=== PATIENT | male | born 1970 | race American Indian/Alaskan Native ===

== ENCOUNTER → 2020-07-21 08:58 | Outpatient (BNVA) | payer MEDICAID, SELFPAY | PROVIDERS: PCP Internal Medicine; Referring Provider Internal Medicine; Visit Provider Physician Assistant | DX: Z76.89 Persons encountering health services in other specified circumstances (principal) ==

== ENCOUNTER → 2020-08-03 14:27 | Outpatient (BNVA) | payer MEDICAID, SELFPAY | PROVIDERS: PCP Internal Medicine; Referring Provider Internal Medicine; Visit Provider Urology | DX: E29.1 Testicular hypofunction (principal); N00-N99 Diseases of the genitourinary system; K40.90 Unilateral inguinal hernia, without obstruction or gangrene, not specified as recurrent; E11.9 Type 2 diabetes mellitus without complications | CPT/HCPCS: 99212 ==

== ENCOUNTER 2020-09-30 08:10 | Day surgery (SDC) | payer MEDICAID, SELFPAY ==
--- NOTE | 2020-09-29 09:51 | HO.ANESPROP2 ---
Documented by User: Alma Rosa Pavon 09/29/20 09:52 HPI - Anesthesia Eval Consult details Narrative: 50yo M for Colonoscopy PMFSH Active Problems Active Problems: All Active Problems (Updated 08/03/20 @ 15:11 by Alejo Cordero III, MD) Inguinal hernia (Acute) Delayed ejaculation, acquired, generalized, mild (Acute) Hypogonadism in male (Acute) Vitamin D deficiency (Acute) HTN (hypertension) (Acute) Depression (Acute) Diabetes (Acute) Encounter for screening colonoscopy (Acute) Past Medical History Medical History Delayed ejaculation, acquired, generalized, mild Depression Diabetes HTN (hypertension) Hypogonadism in male Vitamin D deficiency Family History Family History Mother Breast cancer Surgical History Surgical History History of appendectomy Hx of cholecystectomy Social History Social History Alcohol intake: never Smoking Status: Former smoker Use of substances other than those prescribed or required for medical reasons: No Advance Directives: No Advance Directives Information Provided: Yes Recently lost weight without trying: No Current occupational status: unemployed Meds Allergies Allergy/AdvReac Type Severity Reaction Status Date / Time ciprofloxacin [Cipro] Allergy Unknown Itching Verified 09/30/20 08:29 Home Medications Medication Instructions Recorded Confirmed Last Taken Type cholecalciferol (vitamin D3) 50 50 mcg PO DAILY 07/21/20 09/27/20 Unknown History mcg (2,000 unit) chewable tablet clonazepam 1 mg tablet 1 mg PO BID 07/21/20 09/27/20 Unknown History dulaglutide 1.5 mg/0.5 mL 1.5 mg SUBCUT QWEEK 07/21/20 09/27/20 Unknown History subcutaneous pen injector fenofibrate 54 mg tablet 54 mg PO DAILY 07/21/20 09/27/20 Unknown History fluticasone propionate 110 2 puff INHALATION BID 07/21/20 09/27/20 Unknown History mcg/actuation HFA aerosol inhaler fluticasone propionate 50 1 spray INTRANASAL DAILY 07/21/20 09/27/20 Unknown History mcg/actuation nasal spray,suspension gabapentin 100 mg capsule 100 mg PO TID 07/21/20 09/27/20 Unknown History lisinopril 20 1 tab PO DAILY 07/21/20 09/27/20 Unknown History mg-hydrochlorothiazide 12.5 mg tablet metformin 1,000 mg tablet 1,000 mg PO BID 07/21/20 09/30/20 09/30/20 History montelukast 10 mg tablet 10 mg PO DAILY 07/21/20 09/27/20 Unknown History omeprazole 40 mg capsule,delayed 40 mg PO DAILY 07/21/20 09/27/20 Unknown History release venlafaxine 150 mg 150 mg PO DAILY 07/21/20 09/27/20 Unknown History capsule,extended release 24 hr Exam Exam Date and Time: September 29, 2020950 Assessment and Plan Assessment Anesthesia Assessment: Chart Reviewed Documented by User: Shanae Norman 09/30/20 09:50 [facility] Past Medical History Medical History Delayed ejaculation, acquired, generalized, mild Depression Diabetes HTN (hypertension) Hypogonadism in male Vitamin D deficiency Family History Family History Mother Breast cancer Surgical History Surgical History History of appendectomy Hx of cholecystectomy Social History Social History Alcohol intake: never Smoking Status: Former smoker Use of substances other than those prescribed or required for medical reasons: No Advance Directives: No Advance Directives Information Provided: Yes Recently lost weight without trying: No Current occupational status: unemployed Meds Allergies Allergy/AdvReac Type Severity Reaction Status Date / Time ciprofloxacin [Cipro] Allergy Unknown Itching Verified 09/30/20 08:29 Home Medications Medication Instructions Recorded Confirmed Last Taken Type cholecalciferol (vitamin D3) 50 50 mcg PO DAILY 07/21/20 09/27/20 Unknown History mcg (2,000 unit) chewable tablet clonazepam 1 mg tablet 1 mg PO BID 07/21/20 09/27/20 Unknown History dulaglutide 1.5 mg/0.5 mL 1.5 mg SUBCUT QWEEK 07/21/20 09/27/20 Unknown History subcutaneous pen injector fenofibrate 54 mg tablet 54 mg PO DAILY 07/21/20 09/27/20 Unknown History fluticasone propionate 110 2 puff INHALATION BID 07/21/20 09/27/20 Unknown History mcg/actuation HFA aerosol inhaler fluticasone propionate 50 1 spray INTRANASAL DAILY 07/21/20 09/27/20 Unknown History mcg/actuation nasal spray,suspension gabapentin 100 mg capsule 100 mg PO TID 07/21/20 09/27/20 Unknown History lisinopril 20 1 tab PO DAILY 07/21/20 09/27/20 Unknown History mg-hydrochlorothiazide 12.5 mg tablet metformin 1,000 mg tablet 1,000 mg PO BID 07/21/20 09/30/20 09/30/20 History montelukast 10 mg tablet 10 mg PO DAILY 07/21/20 09/27/20 Unknown History omeprazole 40 mg capsule,delayed 40 mg PO DAILY 07/21/20 09/27/20 Unknown History release venlafaxine 150 mg 150 mg PO DAILY 07/21/20 09/27/20 Unknown History capsule,extended release 24 hr Exam Airway Mallampati Class: II TM Dist: >3cm Neck ROM: Full Loose/Missing/Broken Teeth: No Heart: RRR Lungs: CTA Assessment and Plan Assessment Anesthesia Assessment: Anesthesia Plan Discussed Final Anesthetic Review NPO: Yes ASA Class: II Final Preanesthetic Review: Meds/Allgs Chart Reviewed, Consent Obtained/Reviewed and Anes Risks/Benef Reviewed Patient Risk: Low Procedure Risk: Low Anesthetic Plan Anesthetic Plan: MAC: Disposition: Standard PACU
[2020-09-30 08:32] VITALS: BMI 30.7
[2020-09-30 08:44] VITALS: BP 109/66; PULSE 96; RESP 16; TEMP 37; O2SAT 98
[2020-09-30 08:52] LABS: Glucose, Whole Blood 106 mg/dL (60-115)
[2020-09-30] MEDS: Lactated Ringers 1,000 ML 100 ML IVCONT (09:00)
--- NOTE | 2020-09-30 09:28 | MHC.SHP ---
Pre-Procedural Eval Section B Chief Complaint: screening Relevant Family History (Specify if Yes): No Relevant Social History: None Present Medications: see Short Stay Collaborative assessment Medical History: Significant History (Delayed ejaculation, acquired, generalized, mild Depression Diabetes HTN (hypertension) Hypogonadism in male Vitamin D deficiency) History of Previous Operations: Relevant previous surgery/procedure and date(s) (appendectomy, cholecystectomy) Allergies: Allergies Allergy/AdvReac Type Severity Reaction Status Date / Time ciprofloxacin [Cipro] Allergy Unknown Itching Verified 09/30/20 08:29 Review of Systems Sugical H&P ROS: Negative: Constitution, Cardiovascular, Respiratory, Neurological, Psychiatric, Hem-Onc, Allergic/Immunologic, Gastrointestinal, Genitourinary, Musculoskeletal, Integumentary, Endocrine and Eyes/Ears/Nose/Throat Exam Surgical H&P Exam: Normal: HEENT, Normal: Heart, Normal: Lungs, Normal: Extremities, Normal: Abdomen, Normal: Skin and Normal: Neurological Plan Diagnosis/Plan: Unchanged I have reviewed the history and physical and performed a pertinent physical examination on my patient. No changes have occurred unless specified.
--- NOTE | 2020-09-30 09:56 | PM.OP ---
Brief Operative Note Date of Service: 09/30/20 Pre-op diagnosis: colon screening Post-op diagnosis: other (diverticulosis, internal hemorrhoids) Procedure: see op note Surgeon: Dao Chakraborty MD Anesthesia: MAC Estimated blood loss (mL): 0 Condition: stable Disposition: PACU
--- NOTE | 2020-09-30 09:57 | P.OP_ITS ---
Operative Note Operative Note Date of Service: 09/30/20 Narrative: Operative Information Procedure Description: Colonoscopy COLONOSCOPY Instrument: Olympus variable stiffness pediatric scope 190L Colonoscopy Monitoring: Vital signs and clinical assessment, continuous EKG monitoring, Pulse oximetry, Carbon Dioxide monitoring and blood pressure monitoring were done throughout the procedure. Colon withdrawal time was 9 minutes. Procedure: The patient was placed in the left lateral decubitis position and pre-procedure medications were administered. After a digital rectal examination of the ano-rectum, the video colonoscope was inserted into the rectum and advanced through the colon to the cecum/TI. The colonoscope was slowly withdrawn in a retrograde panoramic fashion and the colon mucosa was carefully examined including a retroflexed view of the rectum. Findings and interventions are described below. Procedure Difficulty:easy Findings: Terminal Ileum-normal Cecum:normal Ascending Colon: normal Transverse Colon -normal Descending Colon:normal Sigmoid Colon: scattered moderate sized diverticula Rectum: Retroflexion with small internal hemorrhoids, grade II Anorectum - internal hemorrhoids seen on forward view Colon preparation: [place] Bowel Preparation Scale Right colon; 2 Transverse colon: 2 Left colon; 1 (0 = Unprepared colon segment with mucosa not seen due to solid stool that cannot be cleared. 1 = Portion of mucosa of the colon segment seen, but other areas of the colon segment not well seen due to staining, residual stool and/or opaque liquid. 2 = Minor amount of residual staining, small fragments of stool and/or opaque liquid, but mucosa of colon segment seen well. 3 = Entire mucosa of colon segment seen well with no residual staining, small fragments of stool or opaque liquid) Impression and Post Procedure Diagnosis: internal hemorrhoids diverticular disease Plan: High fiber diet leaflet Avoid straining at stool, epsom salts and sitz bath, anusol supps or cream Repeat Colonoscopy in 5 years deu to prep on left or earlier if clinically indicated Above findings were reviewed with the patient and relevant handouts were provided if indicated.
[2020-09-30 10:05] VITALS: BP 98/57; PULSE 81; RESP 18; TEMP 36.3; O2SAT 95
[2020-09-30 10:18] VITALS: BP 106/70; PULSE 80; RESP 18; O2SAT 98
== END 2020-09-30 10:37 | disposition home or self-care (01) ==
PROVIDERS: PCP Internal Medicine; Visit Provider Internal Medicine Gastroenterology
PROC: 0DJD8ZZ Inspection of Lower Intestinal Tract, Via Natural or Artificial Opening Endoscopic (ICD-10-PCS; CPT 45378; principal; 2020-09-30 09:40)
DX: Z12.11 Encounter for screening for malignant neoplasm of colon (principal); K57.30 Diverticulosis of large intestine without perforation or abscess without bleeding; K64.1 Second degree hemorrhoids; I10 Essential (primary) hypertension; E11.9 Type 2 diabetes mellitus without complications; Z90.49 Acquired absence of other specified parts of digestive tract; Z79.84 Long term (current) use of oral hypoglycemic drugs; Z79.899 Other long term (current) drug therapy
CPT/HCPCS: 45378; 82947

== ENCOUNTER → 2020-10-28 11:40 | Outpatient (BNVA) | payer OTHER, SELFPAY | PROVIDERS: PCP Internal Medicine; Visit Provider Physician Assistant ==

== ENCOUNTER 2023-02-14 11:36 | Outpatient (REF) | payer OTHER, SELFPAY ==
[2023-02-14 13:23] LABS: MANUAL DIFF FLAG NO
[2023-02-14 13:57] LABS: Basophils Absolute Auto 0.1 X10*3/uL (0.0-0.2); Basophils Percent Auto 0.6 % (0-2); Eosinophils Absolute Auto 0.1 X10*3/uL (0.0-0.4); Eosinophils Percent Auto 1.1 % (0-4); Hematocrit 49.2 % (42.0-52.0); Hemoglobin 16.2 g/dl (14.0-18.0); Imm Gran Abs Auto 0.03 X10*3/uL (0.00-0.03); Imm Gran Pct Auto 0.4 % (0.0-0.4); Lymphocytes Absolute Auto 2.5 X10*3/uL (1.2-4.9); Lymphocytes Percent Auto 31.4 % (20-40); Mean Corpuscular HGB Conc 32.9 g/dl (31.0-36.0); Mean Corpuscular Hemoglobin 29.2 pg (27.0-33.0); Mean Corpuscular Volume 88.8 fL (80.0-98.0); Mean Platelet Volume 9.2 fL (9.4-12.4); Monocytes Absolute Auto 0.5 X10*3/uL (0.1-1.2); Monocytes Percent Auto 6.9 % (2-11); Neutrophils Absolute Auto 4.7 x10*3/uL (2.0-8.3); Neutrophils Percent Auto 59.6 % (45-73); Platelet Count 529 X10*3/uL (160-400); Red Blood Count 5.54 X10*6/uL (4.60-5.80); Red Cell Distribution Width 13.7 % (11.0-16.0); White Blood Count 7.9 X10*3/uL (4.8-10.8)
== END 2023-02-14 11:37 | disposition home or self-care (01) ==
LOC: HO.HHCL 11:36
PROVIDERS: Visit Provider Registered Nurse
DX: R79.89 Other specified abnormal findings of blood chemistry (principal)
CPT/HCPCS: 36415; 85025

== ENCOUNTER 2023-08-23 13:57 | Outpatient (REF) | payer OTHER, SELFPAY ==
[2023-08-23 16:49] LABS: Estimated Glomerular Filt Rate > 60
[2023-08-24 03:36] LABS: Syphilis Screen Nonreactive (Nonreactive)
[2023-08-24 03:54] LABS: ~HepC Num1 0.14 S/CO (0.00-0.79); ~Hepatitis C Antibody Nonreactive (Nonreactive)
[2023-08-28 15:17] LABS: HIV RNA PCR Qn Copies NOT DETECTED copies/mL (NOT DETECTED); HIV RNA PCR Qn Log Copies NOT DETECTED (NOT DETECTED)
== END 2023-08-23 13:58 | disposition home or self-care (01) ==
LOC: HO.HHCL 13:57
PROVIDERS: Visit Provider Nurse Practitioner Primary Care
DX: Z11.3 Encounter for screening for infections with a predominantly sexual mode of transmission (principal)
CPT/HCPCS: 36415; 82565; 86780; 86803; 87536

== ENCOUNTER 2023-12-26 08:28 | Outpatient (AMB) | payer OTHER, SELFPAY ==
[2023-12-26 08:30] VITALS: BP 128/63; PULSE 88; BMI 29.4
--- NOTE | 2023-12-26 08:30 | A.OFFVIS_ITS ---
Vital Signs 3 12/26/23 08:30 Height 5 ft 5 in Weight 176 lb 12.972 oz BMI 29.4 BP 128/63 Blood Pressure Location Rt brachial Position Sitting Pulse 88 Intake Visit Reasons: Colonoscopy Screening Intake Note: Issac presents to in office visit today for colonoscopy screening. CC: Patient reports occasional epigastric pain. Denies other GI symptoms. Electrical Technology Instructor Required: Yes Electrical Technology Instructor Name: [id number] Judy Accompanied by: Self / Same As Patient Allergies ciprofloxacin [Cipro] Allergy (Unknown, Verified 12/26/23 08:34) Itching HPI HPI Colonoscopy Screening: Details: 53-YEAR-OLD MALE here for preprocedural meeting to discuss a screening colonoscopy. He is referred by [facility]. PMX HERMANN Asthma Obesity Hypertension High cholesterol Diabetes Depression Fibromyalgia syndrome Inguinal hernia Allergic rhinitis GERD Hypogonadism Generalized osteoarthritis Thrombophilia Diabetic neuropathy ? HIV verses hepatitis-B infection-on [place] - preventative Constipation * SURGICAL HISTORY Cholecystectomy Appendectomy * ALLERGIES Cipro * [employer] LABS: No recent labs in our system 2020 colonoscopy-Chakraborty Findings: Terminal Ileum-normal Cecum:normal Ascending Colon: normal Transverse Colon -normal Descending Colon:normal Sigmoid Colon: scattered moderate sized diverticula Rectum: Retroflexion with small internal hemorrhoids, grade II Anorectum - internal hemorrhoids seen on forward view Impression and Post Procedure Diagnosis: internal hemorrhoids diverticular disease Plan: High fiber diet leaflet Avoid straining at stool, epsom salts and sitz bath, anusol supps or cream Repeat Colonoscopy in 5 years deu to prep on left or earlier if clinically indicated TODAY'S VISIT [employer] #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 He had a negative colonoscopy at that time with a recommended 5 year follow up; mostly because of insufficient prep. He has had many years of stomach problems. He says he is also having upper stomach problems and was sent for an EGD. He takes omeprazole daily but he still has a lot of upper abd pain. The pain is in the midline gastric to epigastric area. When it is very bad it is intense 10/10 and he has to lay down on his side. The area is always sore and he can't even rest his hands across his abdomen. He is having some post prandial bowel urgency and watery stools. This has been a problem that comes and goes but will happen about twice a week. He will have normal BM's most of the time and he uses Miralax for constipation as needed. He will use this about twice a week. He denies N/V but does have a lot of acid brash. No dysphagia. He also say she is losing a lot of weight 30# since 07/2024. He has been a long time diabetic. He is s/p dillon. HE is aware to avoid too many fats and he eats mostly at home and avoids GERD triggers. He is on omeprazole 40mg qd. Medications that could be contributing to his weight loss are Trulicity and Farxiga along with metformin. Both is mother and father have stomach problems, his mother had Celiac disease. Will get an EGD along with an upper GI study, a RAST panel, and H pylori stool, and CRP. Going forward we might want to move him away from omeprazole due to the loose stools and insufficient relief. We also could consider Creon. Because he has solid bowel movements I do not think cholestyramine or Carafate would be appropriate. Dicyclomine could be considered. Return office visit in 4 weeks to go over whatever results we have at that time. [facility] Medical History Hemorrhoids Delayed ejaculation, acquired, generalized, mild Hypogonadism in male Vitamin D deficiency HTN (hypertension) Depression Diabetes Surgical History History of esophagogastroduodenoscopy (EGD) H/O colonoscopy Hx of cholecystectomy History of appendectomy Family History Mother Breast cancer Social History Household Members: None Household Members Other:: with a friend Alcohol intake: never Patient Tobacco Use Status: Current everyday Tobacco user Tobacco use type: Cigarette Cigarettes Per Day: 5 Current occupational status: unemployed Review of Systems Const Denies fatigue, Denies fever(s), Denies night sweats, Denies poor appetite and Denies weight loss Eyes Details: Glasses Reports requires corrective lenses ENT Reports Normal hearing present, Denies dental pain, Denies dysphagia, Denies hearing loss, Denies mouth pain, Denies odynophagia, Denies throat swelling, Denies tongue swelling and Reports other (Dentition adequate) Card Reports no additional complaints Resp Reports no additional complaints GI Details: Reports abdominal pain, Denies melena, Denies bloating, Denies hematochezia, Reports constipation, Denies GI cramping, Denies dysphagia, Denies excessive flatus, Denies early satiety, Reports heartburn, Denies diarrhea, Reports loose stools, Denies nausea, Denies odynophagia, Denies vomiting and Denies hematemesis Skin/Breast Denies pruritus, Denies lesions, Denies rash and Denies jaundice Neuro Reports Normal hearing present and Denies Abnormal speech present Endo Denies fatigue Aller/Immun Denies throat swelling and Denies tongue swelling Physical Exam Vital Signs: Last Vital Signs Pulse 88 12/26/23 08:30 BP 128/63 12/26/23 08:30 BMI result Body Mass Index 29.4 Const General: cooperative, no acute distress, well developed and well groomed Nutritional Appearance: well nourished and overweight Orientation/consciousness: oriented to person, oriented to place and oriented to time Limitations: language barrier HEENT Head: Yes normocephalic and Yes atraumatic Eyes General: appearance normal, both eyes and all related structures Pupils: Equal, round and reactive pupils present Neck Neck: Yes normal visual inspection and Yes no lymphadenopathy Thyroid: Thyroid normal Resp Effort & Inspection: normal respiratory effort and able to speak in complete sentences Auscultation: clear to auscultation bilaterally Cardio Rate: regular rate Rhythm: regular rhythm Heart sounds: Normal, physiologic split S2 sound present Peripheral pulses: radial pulses present and posterior tibial pulses present GI Inspection: No distended, No Abdominal panniculus present and Yes obesity Palpation (GI): Soft to palpation, Tenderness to palpation present (GI) in the epigastrum, no guarding, not rigid and No hepatosplenomegaly present Percussion: Yes normal to percussion Auscultation: normal bowel sounds Rectal Exam - Male: Yes deferred Abdomen image: 2 1. surgical scars 2. 3. Skin General skin exam: no rashes or lesions noted, turgor normal, skin not dry, no jaundice, No spider nevi and no striae Rashes: no rashes Nails: normal Neuro General: oriented to person, oriented to place and oriented to time Cranial nerves: Yes Equal, round and reactive pupils present and Yes Normal hearing present Speech: No Abnormal speech present Extrem General: Yes normal to inspection, No clubbing, No cyanosis, No edema and Yes venous stasis dermatitis (Mild venous stasis changes with loss of hair in the last 3rd of legs) Psych Appearance: grossly normal and well kempt Mental Status: mental status grossly normal Speech and movement: Normal speech and movement present Affect: normal affect Attitude: cooperative Thought process: Normal thought process present and not confabulating Thought content: Normal thought content present Insight: Limited insight present (Psych) Judgement: Limited judgement present (Psych) Assessment & Plan Assessment & Plan (1) Asthma: Code(s): J45.909 - Unspecified asthma, uncomplicated Category: Medical (2) HERMANN (obstructive sleep apnea): Code(s): G47.33 - Obstructive sleep apnea (adult) (pediatric) Category: Medical (3) GERD (gastroesophageal reflux disease): Code(s): K21.9 - Gastro-esophageal reflux disease without esophagitis Category: Medical (4) Pre-op examination: Code(s): Z01.818 - Encounter for other preprocedural examination Category: Medical (5) Upper abdominal pain: Code(s): R10.10 - Upper abdominal pain, unspecified Category: Medical (6) Weight loss, non-intentional: Comment: 30 lbs since 07/2024 Code(s): R63.4 - Abnormal weight loss Category: Medical Plan [employer] #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 He had a negative colonoscopy at that time with a recommended 5 year follow up; mostly because of insufficient prep. He has had many years of stomach problems. He says he is also having upper stomach problems and was sent for an EGD. He takes omeprazole daily but he still has a lot of upper abd pain. The pain is in the midline gastric to epigastric area. When it is very bad it is intense 10/10 and he has to lay down on his side. The area is always sore and he can't even rest his hands across his abdomen. He is having some post prandial bowel urgency and watery stools. This has been a problem that comes and goes but will happen about twice a week. He will have normal BM's most of the time and he uses Miralax for constipation as needed. He will use this about twice a week. He denies N/V but does have a lot of acid brash. No dysphagia. He also say she is losing a lot of weight 30# since 07/2024. He has been a long time diabetic. He is s/p dillon. HE is aware to avoid too many fats and he eats mostly at home and avoids GERD triggers. He is on omeprazole 40mg qd. Medications that could be contributing to his weight loss are Trulicity and Farxiga along with metformin. Both is mother and father have stomach problems, his mother had Celiac disease. Will get an EGD along with an upper GI study, a RAST panel, and H pylori stool, and CRP. Going forward we might want to move him away from omeprazole due to the loose stools and insufficient relief. We also could consider Creon. Because he has solid bowel movements I do not think cholestyramine or Carafate would be appropriate. Dicyclomine could be considered. Return office visit in 4 weeks to go over whatever results we have at that time. Orders: Orders 2 EGD with [facility]by - GI Use Only Today R10.10 - Upper abdominal pain, unspecified H pylori Ag Stool Today R10.10 - Upper abdominal pain, unspecified, R63.4 - Abnormal weight loss Comprehensive Met. Panel Today G47.33 - Obstructive sleep apnea (adult) (pediatric), J45.909 - Unspecified asthma, uncomplicated, K21.9 - Gastro- esophageal reflux disease without esophagitis, Z01.818 - Encounter for other preprocedural examination Complete Blood Count Auto Diff Today G47.33 - Obstructive sleep apnea (adult) (pediatric), J45.909 - Unspecified asthma, uncomplicated, K21.9 - Gastro- esophageal reflux disease without esophagitis, Z01.818 - Encounter for other preprocedural examination [place] upper GI small bowel Today R10.10 - Upper abdominal pain, unspecified, R63.4 - Abnormal weight loss Rast Allergen Today R10.10 - Upper abdominal pain, unspecified, R63.4 - Abnormal weight loss C Reactive Protein Today R10.10 - Upper abdominal pain, unspecified, R63.4 - Abnormal weight loss Amylase Today R10.10 - Upper abdominal pain, unspecified, R63.4 - Abnormal weight loss Lipase Today R10.10 - Upper abdominal pain, unspecified, R63.4 - Abnormal weight loss TSH reflex Free T4 Today R10.10 - Upper abdominal pain, unspecified, R63.4 - Abnormal weight loss Coding Level of Care Code New Pt Level 3 (76072) Diagnoses Asthma J45.909 HERMANN (obstructive sleep apnea) G47.33 GERD (gastroesophageal reflux disease) K21.9 Pre-op examination Z01.818 Upper abdominal pain R10.10 Weight loss, non-intentional R63.4
== END 2023-12-26 09:29 | disposition home or self-care (01) ==
PROVIDERS: PCP Internal Medicine; Visit Provider Nurse Practitioner
DX: J45.909 Unspecified asthma, uncomplicated (principal); G47.33 Obstructive sleep apnea (adult) (pediatric); K21.9 Gastro-esophageal reflux disease without esophagitis; Z01.818 Encounter for other preprocedural examination; R10.10 Upper abdominal pain, unspecified; R63.4 Abnormal weight loss
CPT/HCPCS: 99203; 99214

== ENCOUNTER 2023-12-26 08:28 | Outpatient (REF) | payer OTHER, SELFPAY ==
[2023-12-26 10:03] LABS: MANUAL DIFF FLAG NO
[2023-12-26 10:38] LABS: Basophils Absolute Auto 0.1 X10*3/uL (0.0-0.2); Basophils Percent Auto 1.2 % (0-2); Eosinophils Absolute Auto 0.1 X10*3/uL (0.0-0.4); Eosinophils Percent Auto 2.6 % (0-4); Hematocrit 48.1 % (42.0-52.0); Hemoglobin 15.6 g/dl (14.0-18.0); Imm Gran Abs Auto 0.02 X10*3/uL (0.00-0.03); Imm Gran Pct Auto 0.5 % (0.0-0.4); Lymphocytes Absolute Auto 1.8 X10*3/uL (1.2-4.9); Lymphocytes Percent Auto 41.2 % (20-40); Mean Corpuscular HGB Conc 32.4 g/dl (31.0-36.0); Mean Corpuscular Hemoglobin 30.6 pg (27.0-33.0); Mean Corpuscular Volume 94.5 fL (80.0-98.0); Mean Platelet Volume 9.3 fL (9.4-12.4); Monocytes Absolute Auto 0.6 X10*3/uL (0.1-1.2); Monocytes Percent Auto 13.2 % (2-11); Neutrophils Absolute Auto 1.8 x10*3/uL (2.0-8.3); Neutrophils Percent Auto 41.3 % (45-73); Platelet Count 356 X10*3/uL (160-400); Red Blood Count 5.09 X10*6/uL (4.60-5.80); Red Cell Distribution Width 13.3 % (11.0-16.0); White Blood Count 4.3 X10*3/uL (4.8-10.8)
[2023-12-26 11:23] LABS: Alanine Aminotransferase 35 U/L (0-40); Albumin Level 4.3 g/dL (3.5-5.0); Alkaline Phosphatase 106 U/L (39-117); Amylase 44 U/L (28-100); Anion Gap 15 (12-20); Aspartate Amino Transferase 35 U/L (5-37); Bilirubin Total 0.3 mg/dL (0.0-1.0); Blood Urea Nitrogen 12 mg/dL (9-16); C Reactive Protein 1.13 mg/dL (< or = 0.50); Calcium 9.9 mg/dL (8.4-10.2); Carbon Dioxide 24 mmol/L (22-29); Chloride 105 mmol/L (96-108); Estimated Glomerular Filt Rate > 60; Glucose Random 178 mg/dL (60-115); Lipase 50 U/L (8-78); Potassium 4.2 mmol/L (3.3-5.1); Sodium 140 mmol/L (135-145); Total Protein 7.3 g/dL (6.5-8.0)
[2023-12-26 11:38] LABS: TSH reflex Free T4 1.28 uIU/mL (0.32-4.0)
== END 2023-12-26 08:29 | disposition home or self-care (01) ==
LOC: HO.LAB 08:28
PROVIDERS: PCP Nurse Practitioner Primary Care; Visit Provider Nurse Practitioner
DX: Z01.818 Encounter for other preprocedural examination (principal); R10.10 Upper abdominal pain, unspecified; G47.33 Obstructive sleep apnea (adult) (pediatric); J45.909 Unspecified asthma, uncomplicated; K21.9 Gastro-esophageal reflux disease without esophagitis; R63.4 Abnormal weight loss; Z91.09 Other allergy status, other than to drugs and biological substances
CPT/HCPCS: 36415; 80053; 82150; 83690; 84443; 85025; 86003; 86140; 99202; 99212

== ENCOUNTER 2024-01-08 10:11 | Outpatient (REF) | payer OTHER, SELFPAY | END 2024-01-08 10:12 | disposition home or self-care (01) | LOC: HO.LNP 10:11 | PROVIDERS: Visit Provider Nurse Practitioner | DX: R10.10 Upper abdominal pain, unspecified (principal); R63.4 Abnormal weight loss | CPT/HCPCS: 87338 ==

== ENCOUNTER 2024-01-30 10:48 | Outpatient (AMB) | payer OTHER, SELFPAY ==
--- NOTE | 2024-01-30 10:49 | MHC.OFFVIS ---
Vital Signs 01/30/24 10:53 Height 5 ft 5 in Weight 179 lb 0.246 oz BMI 29.8 BP 135/71 Blood Pressure Location Lt brachial Position Sitting Pulse 80 Intake Visit Reasons: 4 weeks upper abd pain Intake Note: Issac returns to in office visit today in follow up of labs. CC: Home Hospice Rn Required: Yes Accompanied by: Self / Same As Patient Allergies ciprofloxacin [Cipro] Allergy (Unknown, Verified 01/30/24 10:58) Itching HPI HPI 4 weeks upper abd pain: Details: Assessment & Plan (1) Asthma: Code(s): J45.909 - Unspecified asthma, uncomplicated Category: Medical (2) HERMANN (obstructive sleep apnea): Code(s): G47.33 - Obstructive sleep apnea (adult) (pediatric) Category: Medical (3) GERD (gastroesophageal reflux disease): Code(s): K21.9 - Gastro-esophageal reflux disease without esophagitis Category: Medical (4) Pre-op examination: Code(s): Z01.818 - Encounter for other preprocedural examination Category: Medical (5) Upper abdominal pain: Code(s): R10.10 - Upper abdominal pain, unspecified Category: Medical (6) Weight loss, non-intentional: Comment: 30 lbs since 07/2024 Code(s): R63.4 - Abnormal weight loss Category: Medical Plan Filipino #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 He had a negative colonoscopy at that time with a recommended 5 year follow up; mostly because of insufficient prep. He has had many years of stomach problems. He says he is also having upper stomach problems and was sent for an EGD. He takes omeprazole daily but he still has a lot of upper abd pain. The pain is in the midline gastric to epigastric area. When it is very bad it is intense 10/10 and he has to lay down on his side. The area is always sore and he can't even rest his hands across his abdomen. He is having some post prandial bowel urgency and watery stools. This has been a problem that comes and goes but will happen about twice a week. He will have normal BM's most of the time and he uses Miralax for constipation as needed. He will use this about twice a week. He denies N/V but does have a lot of acid brash. No dysphagia. He also say she is losing a lot of weight 30# since 07/2024. He has been a long time diabetic. He is s/p dillon. HE is aware to avoid too many fats and he eats mostly at home and avoids GERD triggers. He is on omeprazole 40mg qd. Medications that could be contributing to his weight loss are Trulicity and Farxiga along with metformin. Both is mother and father have stomach problems, his mother had Celiac disease. Will get an EGD along with an upper GI study, a RAST panel, and H pylori stool, and CRP. Going forward we might want to move him away from omeprazole due to the loose stools and insufficient relief. We also could consider Creon. Because he has solid bowel movements I do not think cholestyramine or Carafate would be appropriate. Dicyclomine could be considered. Return office visit in 4 weeks to go over whatever results we have at that time. Orders: Orders EGD with [facility] - GI Use Only Today R10.10 - Upper abdominal pain, unspecified H pylori Ag Stool Today R10.10 - Upper abdominal pain, unspecified, R63.4 - Abnormal weight loss Comprehensive Met. Panel Today G47.33 - Obstructive sleep apnea (adult) (pediatric), J45.909 - Unspecified asthma, uncomplicated, K21.9 - Gastro-esophageal reflux disease without esophagitis, Z01.818 - Encounter for other preprocedural examination Complete Blood Count Auto Diff Today G47.33 - Obstructive sleep apnea (adult) (pediatric), J45.909 - Unspecified asthma, uncomplicated, K21.9 - Gastro-esophageal reflux disease without esophagitis, Z01.818 - Encounter for other preprocedural examination [place] upper GI small bowel Today R10.10 - Upper abdominal pain, unspecified, R63.4 - Abnormal weight loss Rast Allergen Today R10.10 - Upper abdominal pain, unspecified, R63.4 - Abnormal weight loss C Reactive Protein Today R10.10 - Upper abdominal pain, unspecified, R63.4 - Abnormal weight loss Amylase Today R10.10 - Upper abdominal pain, unspecified, R63.4 - Abnormal weight loss Lipase Today R10.10 - Upper abdominal pain, unspecified, R63.4 - Abnormal weight loss TSH reflex Free T4 Today R10.10 - Upper abdominal pain, unspecified, R63.4 - Abnormal weight loss LABS: Laboratory Tests 12/26/23 01/08/24 10:02 07:58 WBC 4.3 L Hgb 15.6 Hct 48.1 Plt Count 356 D Estimated GFR > 60 Total Bilirubin 0.3 AST 35 ALT 35 Alkaline Phosphatase 106 C-Reactive Protein 1.13 H Amylase 44 Lipase 50 TSH 1.28 Stool H. pylori Ag NEGATIVE RAST PANEL SHOWS NO SIGNIFICANT FOOD ALLERGIES EGD BIOPSY UPPER GI STUDY WITH SMALL BOWEL FOLLOW-THROUGH BOOKED FOR 02/28/2024 TODAY'S VISIT Filipino # We review the labs and so far there is no apparent reason for all of his symptoms. Does he continues to struggle I suggest a trial of dicyclomine until we can get some more evidence in the way of the imaging studies and the EGD. Taken from my last note: (He has had many years of stomach problems. He says he is also having upper stomach problems and was sent for an EGD. He takes omeprazole daily but he still has a lot of upper abd pain. The pain is in the midline gastric to epigastric area. When it is very bad it is intense 10/10 and he has to lay down on his side. The area is always sore and he can't even rest his hands across his abdomen. He is having some post prandial bowel urgency and watery stools. This has been a problem that comes and goes but will happen about twice a week. He will have normal BM's most of the time and he uses Miralax for constipation as needed. He will use this about twice a week.) For now I recommend that he come back after his 02/28/2024 upper GI study. [facility]LY [facility], [facility] Medical History Hemorrhoids Delayed ejaculation, acquired, generalized, mild Hypogonadism in male Vitamin D deficiency HTN (hypertension) Depression Diabetes Surgical History History of esophagogastroduodenoscopy (EGD) H/O colonoscopy Hx of cholecystectomy History of appendectomy Family History Mother Breast cancer Social History Household Members: None Household Members Other:: with a friend Alcohol intake: never Patient Tobacco Use Status: Current everyday Tobacco user Tobacco use type: Cigarette Cigarettes Per Day: 5 Current occupational status: unemployed Review of Systems Const Denies fatigue, Denies fever(s), Denies night sweats, Denies poor appetite and Denies weight loss Eyes Details: glasses Reports requires corrective lenses ENT Reports Normal hearing present, Denies dental pain, Denies dysphagia, Denies hearing loss, Denies mouth pain, Denies odynophagia, Denies throat swelling, Denies tongue swelling and Reports other (Dentition adequate) Card Reports no additional complaints Resp Reports no additional complaints GI Details: Reports abdominal pain, Denies melena, Denies bloating, Denies hematochezia, Reports constipation, Reports GI cramping, Denies dysphagia, Denies excessive flatus, Denies early satiety, Reports heartburn, Reports diarrhea, Denies nausea, Denies odynophagia, Denies vomiting and Denies hematemesis Skin/Breast Denies pruritus, Denies lesions, Denies rash and Denies jaundice Neuro Reports Normal hearing present and Denies Abnormal speech present Endo Denies fatigue Aller/Immun Denies throat swelling and Denies tongue swelling Physical Exam Vital Signs: Last Vital Signs Pulse 80 01/30/24 10:53 BP 135/71 01/30/24 10:53 BMI result Body Mass Index 29.8 Const General: cooperative, no acute distress, well developed and well groomed Nutritional Appearance: well nourished and obese Orientation/consciousness: oriented to person, oriented to place and oriented to time Limitations: language barrier HEENT Head: Yes normocephalic and Yes atraumatic Eyes General: appearance normal, both eyes and all related structures Pupils: Equal, round and reactive pupils present Neck Neck: Yes normal visual inspection and Yes no lymphadenopathy Thyroid: Thyroid normal Resp Effort & Inspection: normal respiratory effort and able to speak in complete sentences Auscultation: clear to auscultation bilaterally Cardio Rate: regular rate Rhythm: regular rhythm Heart sounds: Normal, physiologic split S2 sound present Peripheral pulses: radial pulses present and posterior tibial pulses present GI Inspection: No distended, No Abdominal panniculus present and Yes obesity Palpation (GI): Soft to palpation, nontender, no guarding, not rigid and No hepatosplenomegaly present Percussion: Yes normal to percussion Auscultation: normal bowel sounds Rectal Exam - Male: Yes deferred Skin General skin exam: no rashes or lesions noted, turgor normal, skin not dry, no jaundice, No spider nevi and no striae Rashes: no rashes Nails: normal Neuro General: oriented to person, oriented to place and oriented to time Cranial nerves: Yes Equal, round and reactive pupils present and Yes Normal hearing present Speech: No Abnormal speech present Extrem General: Yes normal to inspection, No clubbing, No cyanosis and No edema Psych Appearance: grossly normal and well kempt Mental Status: mental status grossly normal Speech and movement: Normal speech and movement present Affect: normal affect Attitude: cooperative Thought process: Normal thought process present and not confabulating Thought content: Normal thought content present Insight: Limited insight present (Psych) Judgement: Limited judgement present (Psych) Assessment & Plan Assessment & Plan (1) Irritable bowel syndrome with both constipation and diarrhea: Code(s): K58.2 - Mixed irritable bowel syndrome Category: Medical (2) Elevated C-reactive protein (CRP): Code(s): R79.82 - Elevated C-reactive protein (CRP) Category: Medical Plan Filipino # We review the labs and so far there is no apparent reason for all of his symptoms. Does he continues to struggle I suggest a trial of dicyclomine until we can get some more evidence in the way of the imaging studies and the EGD. Taken from my last note: (He has had many years of stomach problems. He says he is also having upper stomach problems and was sent for an EGD. He takes omeprazole daily but he still has a lot of upper abd pain. The pain is in the midline gastric to epigastric area. When it is very bad it is intense 10/10 and he has to lay down on his side. The area is always sore and he can't even rest his hands across his abdomen. He is having some post prandial bowel urgency and watery stools. This has been a problem that comes and goes but will happen about twice a week. He will have normal BM's most of the time and he uses Miralax for constipation as needed. He will use this about twice a week.) For now I recommend that he come back after his 02/28/2024 upper GI study. EGD BIOPSY UPPER GI STUDY WITH SMALL BOWEL FOLLOW-THROUGH BOOKED FOR 02/28/2024 Orders: Orders Calprotectin, Fecal 01/30/24 R79.82 - Elevated C-reactive protein (CRP) Medications: New dicyclomine 20 mg PO QID 120 tabs 6RF 30 days K58.2 - Mixed irritable bowel syndrome Coding Level of Care Code Est Pt Level 3 (30708) Diagnoses Irritable bowel syndrome with both constipation and diarrhea K58.2 Elevated C-reactive protein (CRP) R79.82
[2024-01-30 10:53] VITALS: BP 135/71; PULSE 80; BMI 29.8
== END 2024-01-30 11:34 | disposition home or self-care (01) ==
PROVIDERS: PCP Internal Medicine; Visit Provider Nurse Practitioner
DX: K58.2 Mixed irritable bowel syndrome (principal); R79.82 Elevated C-reactive protein (CRP)
CPT/HCPCS: 99213

== ENCOUNTER → 2024-01-30 10:48 | Outpatient (BNVA) | payer OTHER, SELFPAY | PROVIDERS: PCP Internal Medicine; Visit Provider Nurse Practitioner | DX: Z01.818 Encounter for other preprocedural examination (principal); R10.10 Upper abdominal pain, unspecified; K21.9 Gastro-esophageal reflux disease without esophagitis; R63.4 Abnormal weight loss | CPT/HCPCS: 99212 ==

== ENCOUNTER 2024-03-19 11:23 | Outpatient (REF) | payer OTHER, SELFPAY ==
[2024-03-19 13:45] LABS: Estimated Glomerular Filt Rate > 60
[2024-03-20 04:47] LABS: Syphilis Screen Nonreactive (Nonreactive)
[2024-03-20 05:15] LABS: ~HepC Num1 0.11 S/CO (0.00-0.79); ~Hepatitis C Antibody Nonreactive (Nonreactive)
[2024-03-21 14:39] LABS: HIV RNA PCR Qn Copies NOT DETECTED copies/mL (NOT DETECTED); HIV RNA PCR Qn Log Copies NOT DETECTED (NOT DETECTED)
== END 2024-03-19 11:24 | disposition home or self-care (01) ==
LOC: HO.HHCL 11:23
PROVIDERS: Visit Provider Nurse Practitioner Primary Care
DX: Z11.3 Encounter for screening for infections with a predominantly sexual mode of transmission (principal)
CPT/HCPCS: 36415; 82565; 86780; 86803; 87536

== ENCOUNTER 2024-08-27 11:49 | Day surgery (SDC) | payer OTHER, SELFPAY ==
--- NOTE | 2024-08-26 09:41 | HO.ANESPROP2 ---
Documented by User: Alma Rosa Pavon NP 08/26/24 09:42 HPI - Anesthesia Eval Consult details Narrative: 54yo M for Upper Endoscopy Anesthesia Pre-Procedure Meds Is the patient on any of the following meds?: GLP1/DPP4 PMFSH Active Problems Active Problems: All Active Problems Elevated C-reactive protein (CRP) (Acute) Irritable bowel syndrome with both constipation and diarrhea (Acute) Weight loss, non-intentional (Acute) Upper abdominal pain (Acute) Pre-op examination (Acute) Diabetic neuropathy (Acute) Thrombophilia (Acute) GERD (gastroesophageal reflux disease) (Acute) Allergic rhinitis (Acute) Fibromyalgia (Acute) HERMANN (obstructive sleep apnea) (Acute) Asthma (Acute) Hemorrhoids (Acute) Inguinal hernia (Acute) Delayed ejaculation, acquired, generalized, mild (Acute) Hypogonadism in male (Acute) Vitamin D deficiency (Acute) HTN (hypertension) (Acute) Depression (Acute) Diabetes (Acute) Past Medical History Medical History Hemorrhoids Delayed ejaculation, acquired, generalized, mild Hypogonadism in male Vitamin D deficiency HTN (hypertension) Depression Diabetes Family History Family History Mother Breast cancer Surgical History Surgical History History of esophagogastroduodenoscopy (EGD) H/O colonoscopy Hx of cholecystectomy History of appendectomy Social History Social History Household Members: None Household Members Other:: lives alone Are you a primary family day care provider to a significant other at home: No Do you presently have visiting nurse or other home services: No Alcohol intake: never Patient Tobacco Use Status: Current everyday Tobacco user Tobacco use type: Cigarette Cigarettes Per Day: 5 Use of substances other than those prescribed or required for medical reasons: No Have you been hit, kicked, punched, or otherwise hurt by someone within the past year? If so, by whom?: No Are you DNR?: No Advance Directives: No Advance Directives Information Provided: Yes Recently lost weight without trying: No Nutrition Risks: No Nutritional Risk Current occupational status: unemployed Meds Allergies Allergy/AdvReac Type Severity Reaction Status Date / Time ciprofloxacin [Cipro] Allergy Unknown Itching Verified 01/30/24 10:58 Home Medications ?Medication ?Instructions ?Recorded ?Confirmed ?Last Taken ?Type cholecalciferol (vitamin D3) 50 50 mcg PO DAILY 07/21/20 10/28/20 Unknown History mcg (2,000 unit) chewable tablet clonazepam 1 mg tablet 1 mg PO BID 07/21/20 10/28/20 Unknown History fluticasone propionate 50 1 spray intranasal DAILY 07/21/20 10/28/20 Unknown History mcg/actuation nasal spray,suspension metformin 1,000 mg tablet 1,000 mg PO BID 07/21/20 10/28/20 09/30/20 History montelukast 10 mg tablet 10 mg PO DAILY 07/21/20 10/28/20 Unknown History omeprazole 40 mg capsule,delayed 40 mg PO DAILY 07/21/20 10/28/20 Unknown History release CPAP (CPAP Machine/Device) 12/26/23 Unknown History acetaminophen 500 mg tablet mg PO 12/26/23 Unknown History ascorbic acid (vitamin C) 1,000 mg 1 g PO Q6H 12/26/23 Unknown History capsule aspirin 81 mg tablet,delayed 81 mg PO DAILY 12/26/23 08/26/24 History release dapagliflozin propanediol 5 mg 10 mg PO DAILY 12/26/23 Unknown History tablet (Farxiga) emtricitabine 200 mg-tenofovir 1 tab PO DAILY 12/26/23 Unknown History alafenamide fumarate 25 mg tablet (Descovy) fenofibrate nanocrystallized 145 145 mg PO DAILY 12/26/23 Unknown History mg tablet fluticasone propionate 100 1 inh inhalation BID 12/26/23 Unknown History mcg/actuation blister powder for inhalation gabapentin 300 mg capsule 300 mg PO TID 12/26/23 Unknown History lisinopril 20 mg tablet 20 mg PO DAILY 12/26/23 Unknown History metoprolol succinate 25 mg 25 mg PO DAILY 12/26/23 Unknown History tablet,extended release 24 hr multivitamin (One-A-Day Essential 1 tab PO DAILY 12/26/23 Unknown History tablet) omega-3 fatty acids 1,000 mg 1,000 mg PO DAILY 12/26/23 Unknown History capsule pravastatin 20 mg tablet 20 mg PO DAILY 12/26/23 Unknown History scopolamine base 1 mg over 3 days 1 patch topical Q3D 12/26/23 Unknown History transdermal patch venlafaxine 75 mg capsule,extended 75 mg PO DAILY 12/26/23 Unknown History release 24 hr zolpidem 10 mg tablet 10 mg PO BEDTIME PRN 12/26/23 Unknown History semaglutide 0.25 mg or 0.5 mg (2 0.25 mg subcut QWEEK 01/30/24 Unknown History mg/3 mL) subcutaneous pen injector (Ozempic) dulaglutide 1.5 mg/0.5 mL mg subcut 08/27/24 Unknown History subcutaneous pen injector (Trulicity) dulaglutide 1.5 mg/0.5 mL mg subcut 08/27/24 08/16/24 History subcutaneous pen injector 1.75 mg (Trulicity) Assessment and Plan Assessment Anesthesia Assessment: Chart Reviewed Documented by User: Shanae Norman MD 08/27/24 12:40 [facility] Past Medical History Medical History Hemorrhoids Delayed ejaculation, acquired, generalized, mild Hypogonadism in male Vitamin D deficiency HTN (hypertension) Depression Diabetes Family History Family History Mother Breast cancer Surgical History Surgical History History of esophagogastroduodenoscopy (EGD) H/O colonoscopy Hx of cholecystectomy History of appendectomy History of Problems with Anesthesia: No Social History Social History Household Members: None Household Members Other:: lives alone Are you a primary family day care provider to a significant other at home: No Do you presently have visiting nurse or other home services: No Alcohol intake: never Patient Tobacco Use Status: Current everyday Tobacco user Tobacco use type: Cigarette Cigarettes Per Day: 5 Use of substances other than those prescribed or required for medical reasons: No Have you been hit, kicked, punched, or otherwise hurt by someone within the past year? If so, by whom?: No Are you DNR?: No Advance Directives: No Advance Directives Information Provided: Yes Recently lost weight without trying: No Nutrition Risks: No Nutritional Risk Current occupational status: unemployed Meds Allergies Allergy/AdvReac Type Severity Reaction Status Date / Time ciprofloxacin [Cipro] Allergy Unknown Itching Verified 01/30/24 10:58 Home Medications ?Medication ?Instructions ?Recorded ?Confirmed ?Last Taken ?Type cholecalciferol (vitamin D3) 50 50 mcg PO DAILY 07/21/20 10/28/20 Unknown History mcg (2,000 unit) chewable tablet clonazepam 1 mg tablet 1 mg PO BID 07/21/20 10/28/20 Unknown History fluticasone propionate 50 1 spray intranasal DAILY 07/21/20 10/28/20 Unknown History mcg/actuation nasal spray,suspension metformin 1,000 mg tablet 1,000 mg PO BID 07/21/20 10/28/20 09/30/20 History montelukast 10 mg tablet 10 mg PO DAILY 07/21/20 10/28/20 Unknown History omeprazole 40 mg capsule,delayed 40 mg PO DAILY 07/21/20 10/28/20 Unknown History release CPAP (CPAP Machine/Device) 12/26/23 Unknown History acetaminophen 500 mg tablet mg PO 12/26/23 Unknown History ascorbic acid (vitamin C) 1,000 mg 1 g PO Q6H 12/26/23 Unknown History capsule aspirin 81 mg tablet,delayed 81 mg PO DAILY 12/26/23 08/26/24 History release dapagliflozin propanediol 5 mg 10 mg PO DAILY 12/26/23 Unknown History tablet (Farxiga) emtricitabine 200 mg-tenofovir 1 tab PO DAILY 12/26/23 Unknown History alafenamide fumarate 25 mg tablet (Descovy) fenofibrate nanocrystallized 145 145 mg PO DAILY 12/26/23 Unknown History mg tablet fluticasone propionate 100 1 inh inhalation BID 12/26/23 Unknown History mcg/actuation blister powder for inhalation gabapentin 300 mg capsule 300 mg PO TID 12/26/23 Unknown History lisinopril 20 mg tablet 20 mg PO DAILY 12/26/23 Unknown History metoprolol succinate 25 mg 25 mg PO DAILY 12/26/23 Unknown History tablet,extended release 24 hr multivitamin (One-A-Day Essential 1 tab PO DAILY 12/26/23 Unknown History tablet) omega-3 fatty acids 1,000 mg 1,000 mg PO DAILY 12/26/23 Unknown History capsule pravastatin 20 mg tablet 20 mg PO DAILY 12/26/23 Unknown History scopolamine base 1 mg over 3 days 1 patch topical Q3D 12/26/23 Unknown History transdermal patch venlafaxine 75 mg capsule,extended 75 mg PO DAILY 12/26/23 Unknown History release 24 hr zolpidem 10 mg tablet 10 mg PO BEDTIME PRN 12/26/23 Unknown History semaglutide 0.25 mg or 0.5 mg (2 0.25 mg subcut QWEEK 01/30/24 Unknown History mg/3 mL) subcutaneous pen injector (Ozempic) dulaglutide 1.5 mg/0.5 mL mg subcut 08/27/24 Unknown History subcutaneous pen injector (Trulicity) dulaglutide 1.5 mg/0.5 mL mg subcut 08/27/24 08/16/24 History subcutaneous pen injector 1.75 mg (Trulicity) Exam Airway Mallampati Class: III TM Dist: >3cm Neck ROM: Full Loose/Missing/Broken Teeth: No Heart: RRR Lungs: CTA Assessment and Plan Assessment Anesthesia Assessment: Anesthesia Plan Discussed Final Anesthetic Review History of Problems with Anesthesia: No NPO: Yes ASA Class: III Final Preanesthetic Review: Meds/Allgs Chart Reviewed, Consent Obtained/Reviewed and Anes Risks/Benef Reviewed Patient Risk: Intermediate Procedure Risk: Intermediate Anesthetic Plan Anesthetic Plan: MAC: Disposition: Standard PACU
[2024-08-27 12:01] VITALS: BMI 29.1
--- NOTE | 2024-08-27 12:14 | MHC.SHP ---
Pre-Procedural Eval Section A - 24 Hr Update-Section A only Date of Service: 08/27/24 Section B - Complete if H&P > 30 days Chief Complaint: Upper abdominal pain, unspecified Relevant Family History (Specify if Yes): No Relevant Social History: Tobacco Use Present Medications: see Short Stay Collaborative assessment Medical History: Significant History (Hemorrhoids Delayed ejaculation, acquired, generalized, mild Hypogonadism in male Vitamin D deficiency HTN (hypertension) Depression Diabetes) History of Previous Operations: Relevant previous surgery/procedure and date(s) (History of esophagogastroduodenoscopy (EGD) H/O colonoscopy Hx of cholecystectomy History of appendectomy) Allergies: Allergies Allergy/AdvReac Type Severity Reaction Status Date / Time ciprofloxacin [Cipro] Allergy Unknown Itching Verified 01/30/24 10:58 Review of Systems Sugical H&P ROS: Negative: Constitution, Cardiovascular, Respiratory, Neurological, Psychiatric, Hem-Onc, Allergic/Immunologic, Gastrointestinal, Genitourinary, Musculoskeletal, Integumentary, Endocrine and Eyes/Ears/Nose/Throat Exam Surgical H&P Exam: Normal: HEENT, Normal: Heart, Normal: Lungs, Normal: Extremities, Normal: Abdomen, Normal: Skin and Normal: Neurological Plan Diagnosis/Plan: Unchanged I have reviewed the history and physical and performed a pertinent physical examination on my patient. No changes have occurred unless specified. Time Spent With Patient Time: Total time managing care of this patient today ____ minutes.
[2024-08-27 12:19] VITALS: BP 135/83; PULSE 68; RESP 16; TEMP 36.6; O2SAT 96
[2024-08-27 12:51] LABS: Glucose, Whole Blood 158 mg/dL (60-115)
[2024-08-27] MEDS: Lactated Ringers 1,000 ML 100 ML IVCONT (12:59)
--- NOTE | 2024-08-27 13:15 | W.PM.OPN ---
Operative Note Operative Note Date of Service: 08/27/24 Narrative: Procedure Description: EGD Indication: abdo pain Anesthesia: MAC FLEXIBLE TRANSORAL UPPER GASTROINTESTINAL ENDOSCOPY UPPER ENDOSCOPY Consent: Indications for the procedure and potential complications of bleeding, perforation, reaction to medications and missed diagnosis were discussed with the patient and informed consent was obtained. Instrument: Olympus GIF H 190 J mid size upper endoscope Monitoring: Vital signs and clinical assessment, continuous EKG monitoring, Pulse oximetry, Carbon Dioxide monitoring and blood pressure monitoring were done throughout the procedure. Procedure: The patient was placed in the left lateral decubitis position and pre-procedure medications were administered and a bite block was placed. The endoscope was inserted into the mouth and advanced under direct vision to the third part of duodenum. A careful inspection was made as the upper endoscope was withdrawn including a retroflexed examination of the proximal stomach; Findings and interventions are described below. Findings: Larynx:normal Esophagus: GE junction at 40 cm, diaphragm hiatus at 40 cm, mild esophagitis at GEJ, bx taken Stomach: patchye erythema and swelling at the pylorus . Biopsies were obtained. Grade 2 flap valve on retroflexed examination of the cardia. Duodenum: Normal bulb and descending duodenum, bx taken Intervention: Biopsies as noted above, Impression/Findings: esophagitis gastritis PLAN: cont omeprazole, check compliance GERD precautions
[2024-08-27 13:20] VITALS: BP 101/46; PULSE 89; RESP 18; TEMP 36.7; O2SAT 97
[2024-08-27 13:35] VITALS: BP 112/70; PULSE 82; RESP 18; TEMP 37; O2SAT 97
--- OUTSIDE RECORDS SUMMARY | 2024-08-27 13:52 | XMS_ITS | Encounter Summary ---
Author Organization [employer] Address [address] [facility] [place] [address] Care Team Providers Care Die Storage Clerk Name Role Phone Rosaura Brady Primary Care Provider [phone] Reason for Visit * Reason Comments Med Refill Encounter Details Date Type Department Care Team (Late st Contact Info) Description 03/04/2024 Refill [facility] [address] [place] [address] Johnny Mandel AGNP Type 2 diabetes mellitus without complication, without long-term current use of insulin ([facility]) Social History Tobacco Use Types Packs/Day Years Used Date Smoking Tobacco: Every Day Cigarettes Smokeless Tobacco: Never Alcohol Use Standard Drinks/Week Comments Not Currently 0 (1 standard drink = 0.6 oz pur e alcohol) Alcohol Answer Date Recorded Frequency of Alcohol Consumption Not on file 10/09/2023 Average Number of Drinks Not on file 024 Frequency of Binge Drinking Not on file 12/2023 Score 0 10/09/2023 Depression Answer Date Recorded Patient Health Questionnaire-9 Score 0 02/14/2023 Housing Stability Answer Date Recorded What is your housing situation today? I have denlesa alvarez 06/04/[address] you li ve. Do you have problems with any of the following? None of the above 06/04/2023 Food Insecurity Answer Date Recorded Within the past 12 months, y ou worried that your food would run out before you got money to buy more: Never True 06/04/2023 Within the past 12 months,th e food you bought just didn't last and you didn't have enough money to get more: Never True Transportation Answer Date Recorded In the past 12 months, has l ack of transportation kept you from medical appts, meetings, work or from getting things needed for daily living? No 06/04/2023 Utilities Answer Date Recorded In the past 12 months, has t he electric, gas, oil or water company threatened to shut off services in your home? No 06/04/2023 Depression Answer Date Recorded Patient Health Questionnaire-2 Score 0 02/14/2023 Comments Unknown Sex and Gender Information Value Date Recorded Sex Assigned at Unknown 09/27/2022 11:56 AM EST Legal Sex Male 10:27 AM EDT Gender Identity Male 06/05/2022 10:27 AM EDT Sexual Orientation Encarnacion 09/27/2022 11 :56 AM EST documented as of this encounter Plan of Treatment Not on file documented as of this encounter Visit Diagnoses Diagnosis Type 2 diabetes mellitus without complication, without long-term current use of insulin ([facility]) documented in this encounter Additional Health Concerns Assessment Noted Time PHQ-9 Depression Total Score: 0 02/15/20 23 10:59 AM EDT documented as of this encounter Care Teams Die Storage Clerk Relationship Specialty Start Date End Date Rosaura Brady ANP [address] [place] [id number] PCP - General Family Medicine 03/22/23 documented as of this encounter
--- OUTSIDE RECORDS SUMMARY | 2024-08-27 13:52 | XMS_ITS | Encounter Summary ---
Author Organization [employer] Address [address] [place] [address] Care Team Providers Care Nurse Staff Industrial Name Role Phone Jose Antonio Rosaura GUERRA Primary Care Provider [phone] Encounter Details Date Type Department Care Team (Late st Contact Info) Description 08/27/2024 Orders Only GENERIC EXTERNAL DATA DEPARTMENT Provider, Generic External Data Social History Tobacco Use Types Packs/Day Years [...] Answer Date Recorded Patient Health Questionnaire-9 Score 3 07/24/2024 Patient Health Questionnaire-9 Score 3 07/24/2024 Last PHQ-9: Questionnaire Data Not on file 1 09/24/2023 Housing Stability Answer Date Recorded What is your housing situation today? I have den alvarez 06/04/[address] you [...] Answer Date Recorded Patient Health Questionnaire-2 Score 2 07/24/2024 Internet Access Answer Date Recorded Internet Access Q1 Yes 07/16/2024 Internet Access Q2 Not on file 07/16/2024 Comments Unknown Sex and Gender Information Value Date Recorded Sex Assigned at Unknown 09/27/2022 11:56 AM EST Legal Sex Male 10:27 AM EDT Gender Identity Male 06/05/2022 10:27 AM EDT Sexual Orientation Encarnacion 09/27/2022 11 :56 AM EST documented as of this encounter Plan of Treatment Not on file documented as of this encounter Procedures Procedure Name Priority Date/Time Associated Diagnosis Comments GLUCOSE, WHOLE BLOOD Routine 08/27/2024 12:47 PM EST documented in this encounter Results * (ABNORMAL) Glucose, Whole Blood (08/27/2024 12:47 PM EST) Glucose, Whole Blood 158(H) 60 - 115 mg/dL [facility] Comment:METER #: [id number] 08/27/2024 12:4 7 PM EST 08/27/2024 12:51 PM EST us Generic External Data Provider LAB BLOOD ORDERAB LES Final Result [facility] [address] [place] [address] [phone] documented in this encounter Visit Diagnoses Not on filedocumented in this encounter Additional Health Concerns Assessment Noted Time PHQ-9 Depression Total Score: 3 07/24/20 24 11:01 AM EST documented as of this encounter Care Teams Nurse Staff Industrial Relationship Specialty Start Date End Date Rosaura Brady ANP [address] [place] [id number] PCP - General Family Medicine 03/22/23 documented as of this encounter
--- OUTSIDE RECORDS SUMMARY | 2024-08-27 13:52 | XMS_ITS | Encounter Summary ---
Author Organization [employer] Address [address] [place] [address] Care Team Providers Care Cnc Set Up Operator Name Role Phone Rosaura Brady Primary Care Provider [phone] Reason for Visit * Reason Comments Med Refill Encounter Details Date Type Department Care Team ([facility] st Contact Info) Description 07/26/2024 Refill [facility] MED[facility] [address] [place], [place] [phone] Rosaura Brady ANP [address] [place] [address] Social History Tobacco Use Types Packs/Day Years [...] documented as of this encounter Visit Diagnoses Not on filedocumented in this encounter Additional Health Concerns Assessment Noted Time PHQ-9 Depression Total Score: 3 07/24/20 24 11:01 AM EST documented as of this encounter Care Teams Cnc Set Up Operator Relationship Specialty Start Date End Date Rosaura Brady ANP [address] [place] [id number] PCP - General Family Medicine 03/22/23 documented as of this encounter
--- OUTSIDE RECORDS SUMMARY | 2024-08-27 13:52 | XMS_ITS | Clinical Summary ---
Author Organization [employer] Address [address] [place] [address] Care Team Providers Care Chain Forming Machine Operator Name Role Phone Rosaura Brady CHARLIE Primary Care Provider [phone] Allergies Active Allergy Reactions Criticality Noted Date Comments Ciprofloxacin Rash,Anaphylaxis High 05/26/2020 Other reaction(s): Rash, Rash, Trouble Breathing Medications clonazePAM (KlonoPIN) 1 MG tablet Take 1 mg by mouth. Active venlafaxine (Effexor) 75 MG tablet Take 75 mg by mouth. Active psyllium (Metamucil Smooth Texture) 58.6 % powderIndications :Residual hemorrhoidal skin tags Take 5.12 g (3 g of fiber) by mouth 3 times daily. Slowly increase to TID. Mix into glass of liquid. 660 g 2 023 Active pramoxine (Proctofoam) 1 % foam APPLY TO AFFECTED AREA NEEDED UP TO EVERY 2 HOURS FOR UP TO 10DAYS FOR HEMORRHOIDS 15 g 023 Active lisinopril 20 MG tablet Take 1 tablet (20 mg) by mouth in the morning. 30 tablet 11 023 Active metoprolol succinate XL (Toprol-XL) 25 MG 24 hr tablet TAKE 1 TABLET BY MOUTH EVERY DAY 023 Active Testosterone 20.25 MG/1.25GM (1.62%) gel APPLY 2 PUMPS TO DRY,NON-HAIRY AREA OF SKIN ONCE A DAY. ROTATE SITES. 023 Active metFORMIN (Glucophage) 500 MG tabletIndications :Type 2 diabetes mellitus with hyperlipidemia (CMS/HCC) (CMS/HCC) Take 1 tablet (500 mg) by mouth 2 times daily. 60 tablet 024 2024 Active omeprazole (PriLOSEC) [address] capsuleIndication s:Gastroesophagea l reflux disease without esophagitis Take 1 capsule (40 mg) by mouth before breakfast. 90 capsule 3 Active Aspirin Low Dose 81 MG chewable tabletIndications :Elevated platelet count CHEW 1 TABLET (81 MG) IN THE MORNING 90 tablet 3 Active cholecalciferol VITAMIN D (Vitamin D-3) 50 MCG (1999) capsuleIndication s:Mood disorder ([facility]) TAKE 1 CAPSULE (50 MCG) BY MOUTH IN THE MORNING 90 capsule 2 Active budesonide (Rhinocort AQ) 32 MCG/ACT nasal sprayIndications: Chronic allergic rhinitis USE 1 TO 2 SPRAYS IN EACH NOSTRIL ONCE PER DAY FOR UP TO 28 DAYS 8.43 mL Active Acetaminophen Extra Strength 500 MG tablet TAKE 1 TABLET (500 MG) BY MOUTH EVERY 6 (SIX) HOURS IF NEEDED FOR MILD PAIN. 30 tablet 3 Active Ventolin HFA 108 (90 Base) MCG/ACT inhalerIndication s:Mild intermittent asthma in adult without complication INHALE 2 PUFFS EVERY 6 HOURS IF NEEDED FOR WHEEZING. 18 g Active gabapentin (Neurontin) 300 MG capsuleIndication s:Neuropathy TAKE 1 CAPSULE BY MOUTH THREE TIMES A DAY 90 capsule 2 Active fexofenadine (Paola) 180 MG tabletIndications :Chronic sinusitis, unspecified location Take 1 tablet (180 mg) by mouth if needed each day (Allergies). 90 tablet 1 024 2024 Active dulaglutide (Trulicity) 1.5 MG/0.5ML solution pen-injectorIndic ations:Type 2 diabetes mellitus with hyperlipidemia (CMS/HCC) ([facility]) Inject 1.5 mg under the skin 1 (one) time per week. 4 each Active dapagliflozin (Farxiga) 10 MGIndications:Typ e 2 diabetes mellitus without complication, without long-term current use of insulin ([facility]) TAKE 1 TABLET BY MOUTH EVERY DAY IN THE MORNING 90 tablet 1 024 Active Descovy 200-25 MG tabletIndications :Exposure to sexually transmitted disease (STD) TAKE 1 TABLET BY MOUTH EVERY DAY IN THE MORNING 30 tablet 2 024 Active doxycycline (Vibra-Tabs) 100 MG tabletIndications :On pre-exposure prophylaxis for HIV Take 2 tabs (200mg) once within 72 hours after unprotected intercourse. Repeat as needed. Take with a full glass of water and do not lie down for at least 30 minutes after. 30 tablet 024 Active amoxicillin-clavu lanate (Augmentin) 875-125 MG tabletIndications :Acute recurrent frontal sinusitis 1 tablet twice daily with food for 7 days 14 tablet 024 Active omega-3 (fish oil) 1000 MG capsule TAKE 1 CAPSULE (1,000 MG) BY MOUTH IN THE MORNING. 90 capsule 3 024 Active montelukast (Singulair) 10 MG tablet TAKE 1 TABLET BY MOUTH EVERY DAY 90 tablet 025 Active fenofibrate (Tricor) 145 MG tablet TAKE 1 TABLET BY MOUTH EVERY DAY 90 tablet 025 Active FREESTYLE LITE test stripIndications: Type 2 diabetes mellitus with hyperlipidemia (CMS/HCC) (CMS/[facility]) Use to test blood sugar 2 times daily 100 each 025 2025 Active Lancets miscIndications:T ype 2 diabetes mellitus with hyperlipidemia (CMS/HCC) (CMS/HCC) Use to test blood sugar 2 times daily 100 each Active Alcohol Swabs 70 % padsIndications:T ype 2 diabetes mellitus with hyperlipidemia (CMS/HCC) (CMS/HCC) Use to test blood sugar 2 times daily 100 each 025 Active Blood Glucose Monitoring Suppl (FreeStyle [place] Lite) w/Device kitIndications:Ty pe 2 diabetes mellitus with hyperlipidemia (CMS/HCC) (CMS/HCC) Use to test blood sugar 2 times daily 1 kit 025 Active lidocaine (Lidoderm) 5 % patchIndications: Low back pain radiating to both legs Apply 1 patch topically Once per day. Remove & discard patch within 12 hours or as directed by . 30 patch 2 025 Active montelukast (Singulair) 10 MG tablet TAKE 1 TABLET BY MOUTH EVERY DAY 90 tablet 024 2024 Discontinued fenofibrate (Tricor) 145 MG tablet TAKE 1 TABLET BY MOUTH EVERY DAY 90 tablet 024 2024 Discontinued Active Problems Problem Noted Date Diagnosed Date Low back pain radiating to both legs 07/24/2024 Encounter for pre-exposure prophylaxis for HIV 1 09/24/2023 Secondary male hypogonadism 11/28/2023 GERD (gastroesophageal reflux disease) Vitamin D deficiency 05/03/2023 Urinary frequency 05/03/2023 Shoulder pain, right 05/03/2023 Obstructive sleep apnea 05/03/2023 Nodule of left lung 05/03/2023 Knee pain 05/03/2023 Hyperlipidemia 05/03/2023 Hernia, inguinal 05/03/2023 Epigastric pain 05/03/2023 Epigastric discomfort 05/03/2023 Colon, diverticulosis 05/03/2023 Class 1 obesity 05/03/2023 Chronic allergic rhinitis 05/03/2023 Asthma 05/03/2023 Leg pain, bilateral 12/06/2022 Assessment & Plan (12/12/2022 10:29 AM EDT): Patient with symmetric leg circumference, no risk factors and other diagnosis that could explain his pain making DVT less likely,. wells score zero. Low HDL (under 40) 10/25/2022 Assessment & Plan (10/25/2022 1:33 PM EDT): Patients HDL is low Prescribed omega-3 (fish oil) 1000 MG capsule Elevated platelet count 10/18/2022 Assessment & Plan (03/21/2023 12:46 PM EDT): [facility] Dr. 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 Assessment & Plan (02/14/2023 11:56 AM EDT): Patient is taking 81 mg aspirin, he requested a prescription so he doesn't have to pay for it. Component Ref Range & Units 4 mo ago 2 yr ago White Blood Cell Count 3.8 - 10.8 Thousand/uL 6.8 8.0 Red Blood Cell Count 4.20 - 5.80 Million/uL 5.50 5.23 Hemoglobin 13.2 - 17.1 g/dL 16.2 15.3 Hematocrit 38.5 - 50.0 % 48.1 45.2 MCV 80.0 - 100.0 fL 87.5 MCH 27.0 - 33.0 pg 29.5 29.3 MCHC 32.0 - 36.0 g/dL 33.7 33.8 RDW 11.0 - 15.0 % 12.4 12.7 Platelet Count 140 - 400 Thousand/uL 600??High?? 511??High?? Ordered CBC w/diff. Requested peripheral smear in notes. Assessment & Plan (10/25/2022 1:08 PM EDT): Poor historian Patient is being managed by oncology/hematology, his next appointment is October 09. Following up on November 17, to discuse if he will need a bone marrow biopsy. Essential hypertension 09/27/2022 Assessment & Plan (03/21/2023 12:47 PM EDT): BP 114/75 today, HTN well managed, continue current therapies. Cardiology appointment: last February 26, he currently is wearing a halter monitor for one month. Counseled low-salt diet, advised increase in exercise to 30 min/ day most days, weight loss if applicable. Call clinic for high BP >170/90 or low <90/60. Fibromyalgia 09/27/2022 Gastritis 09/27/2022 Mood disorder 09/27/2022 Type 2 diabetes mellitus with hyperlipidemia (CM S/HCC) 09/27/2022 Assessment & Plan (03/21/2023 12:30 PM EDT): Component Ref Range & Units 3 mo ago (12/06/22) 3 mo ago (12/06/22) 4 mo ago (10/25/22) 4 mo ago (10/25/22) 4 mo ago (10/25/22) 5 mo ago (09/27/22) 2 yr ago (06/01/20) Hemoglobin A1C 4.0 - 6.0 % 7.9??Abnormal?? 9.9??Abnormal?? 10.1??Abnormal?? 6.3??High?? R, CM QC Media Lot # ,[id number] 2,207,[id number] ,219,[id number] ,[id number] Lot# Expiration Date [id number] 113,023 51,623 110,724 110,724 Resulting Agency A1C=7.4 today Bmy=351 Diabetes not quite controlled, increasing Farxiga from 5 mg to 10 mg PO daily. Assessment & Plan (02/14/2023 11:54 AM EDT): Patient in not checking BS at home. His glucose today was 211 3 hours postprandial. I believe its safe to increase his Trulicity to the max dose 4.5 mg/0.5 mL. He will follow up in one month for A1C. He has been asked again to monitor his blood sugars at home and to bring a log of them in at his next appointment. Counseled weight loss, dietary changes including watching carbs, exercise 30 min/ day, most days. ED precautions discussed. Assessment & Plan (12/06/2022 1:30 PM EDT): A1c 7.9, it was 9.9 6 weeks ago. I am not going to make any medications changes today. I will have him come back in 6 weeks for an a1c which will be 3 months from when we started his medication. Counseled weight loss, dietary changes including watching carbs, exercise 30 min/ day, most days. ED precautions discussed. F/up 6 weeks for a1c Assessment & Plan (10/25/2022 1:52 PM EDT): BG = 432 A1C = 9.9 Denies etoh Diabetes is not managed. Prescribed dapagliflozin 5 mg po every day Counseled weight loss, dietary changes including watching carbs, exercise 30 min/ day, most days. ED precautions discussed F/up 1 month for DM, patient is to continue monitoring glucose at home. Assessment & Plan (09/27/2022 1:35 PM EST): DM: gluscose = 303, A1C = 10.3 Not well controled Diet: Lean meats vegitable and potatoes. Loves rice but doesn't eat it every Compliant with meds Checking glucose at home Counseled weight loss, dietary changes including watching carbs. Encounters Date Type Department Care Team Description 08/27/2024 Orders Only GENERIC EXTERNAL DATA DEPARTMENT Provider, Generic External Data 08/19/2024 Telephone [facility] [place] [address] Rosaura Brady ANP Durable Medical Equipment; Medication Question 08/17/2024 Refill [facility] [place] [address] Rosaura Brady ANP 07/26/2024 Refill [facility] [place] [address] Rosaura Bardy ANP 07/24/2024 11:00 AM EST Office Visit [facility] [place] [address] Rosaura Brady ANP Type 2 diabetes mellitus with hyperlipidemia (CMS/HCC) (CMS/HCC) (Primary Dx); Acute recurrent frontal sinusitis; Low back pain radiating to both legs; Encounter for pre-exposure prophylaxis for HIV 07/24/2024 Travel 07/17/2024 Travel 07/16/2024 Orders Only [facility] [place] [address] Rosaura Brady ANP On pre-exposure prophylaxis for HIV (Primary Dx) 07/16/2024 Patient Outreach [facility] [place] [address] Rosaura Brady ANP Pre-visit Planning ([facility] screening was completed on 10/02/2023) 07/16/2024 Telephone [facility] [place] [address] Adrien Ramos RN Med Refill 07/02/2024 Refill [facility] [place] [address] Rosaura Brady ANP Exposure to sexually transmitted disease (STD) 07/02/2024 Refill [facility] [place] [address] Rosaura Brady ANP Neuropathy 06/20/2024 9:45 AM EST Nurse Only [facility] MEDICINE [address] [place] [address] Chelo Louie LPN Encounter for immunization (Primary Dx) from Last 3 Months Immunizations Name Administration Dates Next Due Hep B, adult 09/27/2016 Influenza Injectable Quadriv alant Preservative Free IIV4 MDCK 05/18/2022,05/18/2021,05/18/2018 Influenza injectable quadriv alent IIV4 with preservative 05/14/2017 Influenza injectable quadriv alent preservative free 05/04/2023 Influenza, IIV3, injectable 05/18/2021, 8,06/23/2011 Influenza, seasonal, injecta ble, preservative free 06/20/2024 Pneumococcal Conjugate PCV 20 05/04/2023 Tdap 01/31/2020 Social History Tobacco Use Types Packs/Day Years Used Date Smoking Tobacco: Every Day Cigarettes Smokeless Tobacco: Never Tobacco Cessation:Ready to Q uit: Not Asked; Counseling Given: Not Answered Alcohol Use Standard Drinks/Week Comments Not Currently [...] Orientation Encarnacion 09/27/2022 11 :56 AM EST Last Filed Vital Signs Vital Sign Reading Time Taken Comments Blood Pressure 119/72 07/24/2024 11:00 AM EST Pulse 94 07/24/2024 11:00 AM EST Temperature 37.1 ??C (98.7 ??F) 07/24/2024 11:[address] Respiratory Rate 14 07/24/2024 11:00 AM EST Oxygen Saturation 98% 07/24/2024 11:00 AM EST Inhaled Oxygen Concentration - - Weight 80.8 kg (178 lb 3.2 oz) 07/24/2024 11:00 AM EST Height 167.6 cm (5' 6 ) 01/17/2024 10:55 AM EDT Body Mass Index 28.76 01/17/2024 10:55 AM EDT Plan of Treatment Health Maintenance Due Date Last Done Comments CT Colonography 1968 FIT DNA/Cologuard 1968 FIT 1968 FOBT 1968 Sigmoidoscopy 1968 Diabetes: Foot Exam 02/11/1978 Eye Exam 02/11/1978 Hepatitis B Vaccines (2 of 3 - 19+ 3-dose series) 10/25/2016 09/27/2016 Zoster Vaccines (1 of 2) 02/11/2018 Diabetes: Urine Protein Screening 10/14/2023 10/13/2022, 06/01/2020 Lipid Panel 10/14/2023 10/13/2022, 06/01/2020 COVID-19 Vaccine ( season) 2024 07/05/2022, 07/20/2021 SDOH Screening 10/02/2024 10/02/2023 Alcohol/Substance Use Screening 10/08/2024 10/09/2023 Diabetes: Hemoglobin A1C 01/22/2025 024, 04/22/2024, 01/17/2024, Additional history exists Colonoscopy 07/21/2025 07/21/2020 Colorectal Cancer Screening 07/21/2025 Depression Screening 07/24/2025 07/24/2024, 07/24/20 24 Tobacco Screening 08/19/2025 08/19/2024 DTaP/Tdap/Td Vaccines (2 - Td or Tdap) 01/30/2030 01/31/2020 RSV Patients and Patients Aged 60 years or older (1 - 1-dose 75+ series) 02/11/2043 Pneumococcal Vaccine: Pediatrics (0 to 5 Years) and At-Risk Patients (6 to 64 Years) Completed 05/04/2023 HIV Screening Completed 03/19/2024, 08/06, 12/19/2022, Additional history exists Hepatitis C Screening Completed 03/19/2024 , 08/23/2023, 10/13/2022 Influenza Vaccine Completed 06/20/2024, , 05/18/2022, Additional history exists HIB Vaccines Aged Out No longer eligi ble based on patient's age to complete this topic HPV Vaccines Aged Out No longer eligi ble based on patient's age to complete this topic Hepatitis A Vaccines Aged Out No long er eligible based on patient's age to complete this topic IPV Vaccines Aged Out No longer eligi ble based on patient's age to complete this topic Meningococcal Vaccine Aged Out No indy kristen eligible based on patient's age to complete this topic RSV under 20 months Aged Out No longe r eligible based on patient's age to complete this topic Rotavirus Vaccines Aged Out No longer eligible based on patient's age to complete this topic Procedures Procedure Name Priority Date/Time Associated Diagnosis Comments GLUCOSE, WHOLE BLOOD Routine 08/27/2024 12:47 PM EST POCT GLYCATED HEMOGLOBIN, TOTAL Routine 07/24/2024 11:21 AM EST Type 2 diabetes mellitus with hyperlipidemia (CMS/HCC) (CMS/HCC) POCT GLUCOSE Routine 07/24/2024 11:21 AM EST Type 2 diabetes mellitus with hyperlipidemia (CMS/HCC) (CMS/HCC) HEPATITIS C AB W/REFL TO HCV RNA, QN, PCR Routine 03/19/2024 11:25 AM EDT Screening for STD (sexually transmitted disease) HIV 1 RNA, QUANTITATIVE REAL TIME PCR Routine 03/19/2024 11:25 AM EDT Screening for STD (sexually transmitted disease) ALBUMIN, RANDOM URINE W/O CREATININE Routine 10/13/2022 8:46 AM EST Type 2 diabetes mellitus without complication, without long-term current use of insulin (CMS/HCC) LIPID PANEL, STANDARD Routine 10/13/2022 8:46 AM EST Class 1 obesity due to excess calories with body mass index (BMI) of 30.0 to 30.9 in adult, unspecified whether serious comorbidity present HM COLONOSCOPY Routine 07/21/2020 from Last 3 Months or Most Recently Relevant to Health Maintenance Results * (ABNORMAL) Glucose, Whole Blood (08/27/2024 12:47 PM EST) Glucose, Whole Blood 158(H) 60 - 115 mg/dL [facility] Comment:METER #: [id number] 08/27/2024 12:4 7 PM EST 08/27/2024 12:51 PM EST us Generic External Data Provider LAB BLOOD ORDERAB LES Final Result [facility] [address] [place] [phone] * (ABNORMAL) POCT HGB A1C (07/24/2024 11:21 AM EST) Hemoglobin A1C 6.6(A) 4.0 - 6.0 % QC Media Lot # [id number] Lot# Expiration Date [id number] Blood 07/24/2024 11:2 1 AM EST Rosaura Brady [facility] POINT OF CARE TEST ENTER/EDIT OR DERABLES Final Result * (ABNORMAL) POCT Glucose (07/24/2024 11:21 AM EST) Pathologist [facility] Glucose Blood, POC 285(A) 60 - 200 mg/dL QC Media Lot # [id number] Lot# Expiration Date ,[id number] Blood Capillary blood specimen / Unknown 07/24/2024 11:21 AM EST Rosaura Brady [facility] POINT OF CARE TEST ENTER/EDIT OR DERABLES Final Result * Hepatitis C Antibody with Reflex to HCV, RNA, Quantitative, Real-Time PCR (03/19/2024 11:25 AM EDT) [facility] Hepatitis C Antibody Nonreactive Nonreactive [facility] Comment:Antibodies to HCV no t detected; does not exclude early acuteHCV infection. Blood Venous blood specimen / Unknown 03/19/2024 11:25 AM EDT 03/19/2024 1:14 PM EDT Rosaura Brady [facility] LAB BLOOD ORDERABLES Final Resul t [facility] [address] [place] [phone] * HIV-1 RNA, Quantitative, Real-Time PCR (03/19/2024 11:25 AM EDT) [facility] HIV RNA PCR Qn Copies NOT DETECTED NOT DETECTED copies/mL [facility] HIV RNA PCR Qn Log Copies NOT DETECTED NOT DETECTED [facility] Comment:Result Units: Log co pies/mLThis test was performed using Real-Time Polymerase ChainReaction.Reportable Range: 20 copies/mL to 10,000,000 copies/mL(1.30 log copies/mL to 7.00 log copies/mL).THIS TEST WAS PERFORMED AT:[facility] [place] [phone] MCKEON MD Blood Venous blood specimen / Unknown 03/19/2024 11:25 AM EDT 03/19/2024 1:14 PM EDT Rosaura GUERRA LAB BLOOD ORDERABLES Final Resul t Performing Organization Address [facility] Co de Phone Number [facility] [address] [place] [address] [phone] * Albumin, Random Urine W/O Creatinine (10/13/2022 8:46 AM EST) Albumin, Urine <0.2 See Note: mg/dL [facility] [place] [email or web address] Comment: Reference Range: Reference Range Not established [employer] [employer] [place] [facility] Comment: The ADA defines abnormalities in albumin excretion as follows: Albuminuria Category ? Result (mcg/mg creatinine) Normal to Mildly increased ?<30 Moderately increased ?30-299 Severely increased ?> OR = 300 The ADA recommends that at least two of three specimens collected within a 3-6 month period be abnormal before considering a patient to be within a diagnostic category. Urine Urine specimen obtained by clean catch procedure / Unknown 10/13/2022 8:46 AM EST 10/13/2022 8:46 AM EST Narrative [facility] - 10/16/2022 2:49 PM EDT FASTING:YES FASTING: YES Johnny GUERRA LAB URINE ORDERABLES Final Res ult Performing Organization Address [facility] de Phone Number [facility] [address], [place] [address] [facility] [place] [email or web address] [address] [facility], ([address]) [place] [address] * (ABNORMAL) Lipid Panel, Standard (10/13/2022 8:46 AM EST) [facility] Cholesterol, Total 135 <200 mg/dL [facility] [place] [facility] HDL Cholesterol 33(L) > OR = 40 mg/dL [facility] [place] [facility] Triglycerides 148 <150 mg/dL [facility] [place] [facility] LDL Cholesterol 77 mg/dL (calc) [facility] [place] [facility] Comment: Reference range: <100 Desirable range <100 mg/dL for primary prevention; ?? <70 mg/dL for patients with CHD or diabetic patients with > or = 2 CHD risk factors. LDL-C is now calculated using the Kristal calculation, which is a validated novel method providing better accuracy than the Friedewald equation in the estimation of LDL-C. Aidan SS et al. ADELFO. 2013;310(19): 7223-6887 (http://education.MeetMe/faq/UMP341) Chol/HDLC Ratio 4.1 <5.0 (calc) [facility] [place] [facility] Non-HDL Cholesterol 102 <130 mg/dL (calc) [facility] [place] [facility] Comment: For patients with diabetes plus 1 major ASCVD risk factor, treating to a non-HDL-C goal of <100 mg/dL (LDL-C of <70 mg/dL) is considered a therapeutic option. Blood Venous blood specimen / Unknown 10/13/2022 8:46 AM EST 10/13/2022 8:46 AM EST Narrative [facility] - 10/16/2022 2:49 PM EDT FASTING:YES FASTING: YES Johnny Mandel [facility] BLOOD ORDERABLES Final Res ult [facility] [address], [place] [address] [facility] [place] [facility] [address] [facility], [address]) [place] [phone] * (ABNORMAL) Colonoscopy (07/21/2020) [facility] Colonoscopy Abnormal( A) Normal Comment:Polyps removed, hemo rhoids. repeat 5 years. Historical Provider HEALTH MAINTENANCE Final Result from Last 3 Months or Most Recently Relevant to Health Maintenance Insurance [facility] Advance Directives Documents on File Type Date Recorded Patient Port Engineer Expl anation Advance Directives and Living Will 06/10/2024 Health Care n Proxy 06/10/24 Care Teams Chain Forming Machine Operator Relationship Specialty Start Date End Date Rosaura Brady ANP [address] [place] [phone] PCP - General Family Medicine 03/22/23
--- OUTSIDE RECORDS SUMMARY | 2024-08-27 13:52 | XMS_ITS | Encounter Summary ---
Author Organization [employer] Address [address] [place] [address] Care Team Providers Care Environmental Economist Name Role Phone Rosaura Brady Primary Care Provider [phone] Reason for Visit * Reason Comments Med Refill Encounter Details Date Type Department Care Team ([facility] st Contact Info) Description 08/17/[address] [facility] MEDICINE [address] [place], [place] [phone] Rosaura Brady ANP [address] [place], [place] [phone] Social History Tobacco Use Types Packs/Day Years [...] documented as of this encounter Care Teams Environmental Economist Relationship Specialty Start Date End Date Rosaura Brady ANP [address] [place] [phone] PCP - General Family Medicine 03/22/23 documented as of this encounter
--- OUTSIDE RECORDS SUMMARY | 2024-08-27 13:52 | XMS_ITS | Encounter Summary ---
Author Organization [employer] Address [address] [place] [address] Care Team Providers Care Cap And Stud Machine Operator Name Role Phone Rosaura Brady Primary Care Provider [phone] Reason for Referral * Medications - Closed Specialty Diagnoses / Procedures Referred By Conttito t Referred To Contact Diagnoses Low back pain radiating to both legs Rosaura Brady ANP [address] [place] [address] Phone: tel: fax: Referral ID Status Reason Start Date Expiration Date Visits Re quested Visits Authorized [id number] Closed 08/19/2024 08/19/2025 1 1 Reason for Visit * Reason Onset Date Comments Durable Medical Equipment 08/19/2024 Medication Question 08/19/2024 Encounter Details Date Type Department Care Team (Late st Contact Info) Description 08/19/2024 Telephone [facility] MEDICINE [address] [place] [address] Rosaura Brady ANP [address] [place] [address] Durable Medical Equipment; Medication Question Social History Tobacco Use Types Packs/Day Years Used Date Smoking Tobacco: Every Day Cigarettes Smokeless Tobacco: Never Alcohol Use Standard Drinks/Week Comments Not Currently 0 (1 standard drink = 0.6 oz pur e alcohol) Alcohol Answer Date Recorded Frequency of Alcohol Consumption Not on file 10/09/2023 Average Number of Drinks Not on file 03/05/2 024 Frequency of Binge Drinking Not on [...] AM EST documented as of this encounter Miscellaneous Notes * Telephone Encounter - Yue Vasques RN - 08/19/2024 3:47 PM EST Telephone call returned to pt using [facility] biosolids management technician #[id number] James. Advised pt that glucometer supplies sent and pt should check with pharmacy before going to see if they are ready for pickup. Advised him that lidocaine patch Rx also sent however it requires a PA otherwise pt would have to pay out of pocket. Informed pt that prior authorization needs to be completed and paperwork will be started by PA specialist shortly, advised him to call pharmacy next week to check on PA status. Pt verbalized understanding, no further questions. * Telephone Encounter - CHARLIE Easley - 08/19/2024 3:21 PM EST Have sent. Please initiate PA for lidocaine patches. Pt has used OTC strength of lidocaine without relief - recommend medical rx strength patch for chronic low back pain. * Telephone Encounter - Yue Vasques RN - 08/19/2024 1:41 PM EST Telephone call to pt using [employer] biosolids management technician Shana #[id number]. Confirmed with pt that he wants lidocaine patches for hip and lower back pain, he states he has tried acupuncture and massage as recommended by PCP at last office visit. Pt also confirmed he is asking for regular glucometer, declined continuous glucose monitor. None listed in current/past meds. Will send to PCP for review. * Telephone Encounter - Jeremy Blanchard - 08/19/2024 10:59 AM EST Tc from pt requesting Lidocaine Patches and glucometer. Pt would like the Patches for Pain on Hip and Lower Back. Contact pt at [phone] documented in this encounter Plan of Treatment Not on file documented as of this encounter Visit Diagnoses Diagnosis Type 2 diabetes mellitus with hyperlipidemia (CMS/HCC) (CMS/HCC)- Primary Low back pain radiating to both legs Lumbago documented in this encounter Additional Health Concerns Assessment Noted Time PHQ-9 Depression Total Score: 3 07/24/20 24 11:01 AM EST documented as of this encounter Care Teams Cap And Stud Machine Operator Relationship Specialty Start Date End Date Rosaura Brady ANP [address] [place] [address] PCP - General Family Medicine 03/22/23 documented as of this encounter
--- OUTSIDE RECORDS SUMMARY | 2024-08-27 13:52 | XMS_ITS | Encounter Summary ---
Author Organization [employer] Address [address] [place] [address] Care Team Providers Care Sanforizer Name Role Phone Rosaura Brady Primary Care Provider [phone] Reason for Visit * Reason Onset Date Comments Med Refill 07/02/2024 Encounter Details Date Type Department Care Team (Late st Contact Info) Description 07/02/2024 Refill [facility] MEDICINE [address] [place], [place] [phone] Rosaura Brady ANP [address] [place] [address] Neuropathy Social History Tobacco Use Types Packs/Day Years [...] as of this encounter Visit Diagnoses Diagnosis Neuropathy Mononeuritis of unspecified site documented in this encounter Additional Health Concerns Assessment Noted Time PHQ-9 Depression Total Score: 0 02/15/20 10:59 AM EDT documented as of this encounter Care Teams Sanforizer Relationship Specialty Start Date End Date Rosaura Brady ANP [address] [place] [address] PCP - General Family Medicine 03/22/23 documented as of this encounter
--- OUTSIDE RECORDS SUMMARY | 2024-08-27 13:52 | XMS_ITS | Encounter Summary ---
Author Organization [email or web address] Address [address] 7[address] [place] [address] Care Team Providers Care Cuffing Machine Operator Name Role Phone Rosaura Brady Primary Care Provider [phone] Reason for Visit * Reason Comments Med Refill Encounter Details Date Type Department Care Team (Late st Contact Info) Description 03/19/2024 Refill [facility] MEDICINE [address] [place] [address] Johnny Mandel AGNP Type 2 diabetes mellitus without complication, without long-term current use of insulin ([facility]) Social History Tobacco Use Types Packs/Day Years [...] complication, without long-term current use of insulin ([facility]) documented in this encounter Additional Health Concerns Assessment Noted Time PHQ-9 Depression Total Score: 0 02/15/20 23 10:59 AM EDT documented as of this encounter Care Teams Cuffing Machine Operator Relationship Specialty Start Date End Date Rosaura Brady ANP [address] [place] [address] PCP - General Family Medicine 03/22/23 documented as of this encounter
--- OUTSIDE RECORDS SUMMARY | 2024-08-27 13:53 | XMS_ITS | Encounter Summary ---
Author Organization [employer] Address [address] [place] [address] Care Team Providers Care Escort Vehicle Driver Name Role Phone Johnny Mandel Primary Care Provider Unavail Rosaura Ferguson Primary Care Provider [phone] Reason for Visit * Reason Onset Date Comments Appointment Request 11/15/2022 Encounter Details Date Type Department Care Team ([facility] st Contact Info) Description 11/15/2022 Telephone [facility] MEDICINE [address] [place] [address] Johnny Mandel AGNP Appointment Request Social History Tobacco Use Types Packs/Day Years Used Date Smoking Tobacco: Every Day Cigarettes Smokeless Tobacco: Never Alcohol Use Standard Drinks/Week Comments Not Currently 0 (1 standard drink = 0.6 oz pur e alcohol) Comments Unknown Sex and Gender Information Value Date Recorded Sex Assigned at Unknown 09/27/2022 11:56 AM EST Legal Sex Male 10:27 AM EDT Gender Identity Male 06/05/2022 10:27 AM EDT Sexual Orientation Encarnacion 09/27/2022 11 :56 AM EST COVID-19 Exposure Response Date Recorded In the last 10 days, have yo u been in contact with someone who was confirmed or suspected to have Coronavirus/COVID-19? No / Unsure 10/25/2022 8:52 AM EDT documented as of this encounter Miscellaneous Notes * Telephone Encounter - Sana Boone - 11/15/2022 1:24 PM EDT Tc from pt requesting a call back, States they seen PCP on 10/25/22 and PCP wanted to follow up withpt a month later, Color Print Inspector does not see any Recalls ,Please contact to clarify. Please contact at [phone] documented in this encounter Plan of Treatment Not on file documented as of this encounter Visit Diagnoses Not on filedocumented in this encounter Care Teams Escort Vehicle Driver Relationship Specialty Start Date End Date Johnny Mandel AGNP PCP - General Family Medicine 09/27/22 03/21/23 Rosaura Brady ANP [address] [place] [address] PCP - General Family Medicine 03/22/23 documented as of this encounter
--- OUTSIDE RECORDS SUMMARY | 2024-08-27 13:53 | XMS_ITS | Encounter Summary ---
Author Organization [employer] Address [address] [place] [address] Care Team Providers Care Manufacturing Supervisor Name Role Phone Rosaura Brady Primary Care Provider [phone] Reason for Visit * Reason Comments Med Refill Encounter Details Date Type Department Care Team (Late st Contact Info) Description 02/01/2024 Refill [facility] MEDICINE [address] [place] [address] Johnny Mandel AGNP Social History Tobacco Use Types Packs/Day Years [...] documented as of this encounter Care Teams Manufacturing Supervisor Relationship Specialty Start Date End Date Rosaura Brady ANP [address] [place] [address] PCP - General Family Medicine 03/22/23 documented as of this encounter
--- OUTSIDE RECORDS SUMMARY | 2024-08-27 13:53 | XMS_ITS | Encounter Summary ---
Author Organization [employer] Address [address] [address] 7t [place] [address] Care Team Providers Care Vehicle Refinisher Name Role Phone Rosaura Brady Primary Care Provider [phone] Reason for Visit * Reason Comments Med Refill Encounter Details Date Type Department Care Team (Late st Contact Info) Description 08/15/[address] [facility] MEDICINE [address] [place] [address] Johnny Mandel AGNP Social History Tobacco Use Types Packs/Day Years Used Date Smoking Tobacco: Every Day Cigarettes Smokeless Tobacco: Never Alcohol Use Standard Drinks/Week Comments Not Currently 0 (1 standard drink = 0.6 oz pur e alcohol) Depression Answer Date Recorded Patient Health Questionnaire-9 [...] the past 12 months, has t he [employer], gas, oil or water company threatened to [...] documented as of this encounter Care Teams Vehicle Refinisher Relationship Specialty Start Date End Date Rosaura Brady ANP [address] [place] [address] PCP - General Family Medicine 03/22/23 documented as of this encounter
--- OUTSIDE RECORDS SUMMARY | 2024-08-27 13:53 | XMS_ITS | Encounter Summary ---
Author Organization [employer] Address [address] [place] [address] Care Team Providers Care Trailer Rental Clerk Name Role Phone Jose Antonio Rosaura GUERRA Primary Care Provider [phone] Encounter Details Date Type Department Care Team (Late st Contact Info) Description 09/06/2023 Orders Only [facility] MED & PEDS [address] [place], [place] [phone] Capri Brewer LPN Social History Tobacco Use Types Packs/Day Years [...] documented as of this encounter Care Teams Trailer Rental Clerk Relationship Specialty Start Date End Date Rosaura Brady ANP [address] [place] [address] PCP - General Family Medicine 03/22/23 documented as of this encounter
--- OUTSIDE RECORDS SUMMARY | 2024-08-27 13:53 | XMS_ITS | Encounter Summary ---
Author Organization [employer] Address [address] 7t [place] [address] Care Team Providers Care Foundry Manager Name Role Phone Brady Rosaura GUERRA Primary Care Provider [phone] Encounter Details Date Type Department Care Team ([facility] st Contact Info) Description 11/23/2023 Orders Only [facility] CHC MED & PEDS [address] [place] [address] Rashawn Carmen MD [address] [place] [address] Type 2 diabetes mellitus with hyperlipidemia (CMS/HCC) (CMS/HCC) (Primary Dx) Social History Tobacco Use Types Packs/Day Years [...] diabetes mellitus with hyperlipidemia (CMS/HCC) (CMS/HCC)- Primary documented in this encounter Additional Health Concerns Assessment Noted Time PHQ-9 Depression Total Score: 0 02/15/20 23 10:59 AM EDT documented as of this encounter Care Teams Foundry Manager Relationship Specialty Start Date End Date Rosaura Brady ANP [address] [place] [address] PCP - General Family Medicine 03/22/23 documented as of this encounter
--- OUTSIDE RECORDS SUMMARY | 2024-08-27 13:53 | XMS_ITS | Clinical Summary ---
Author Organization [facility] Address [address] [place] [address] Care Team Providers Care Parish Worker Name Role Phone Rosaura Brady NP Primary Care Provider [phone] Social History Tobacco Use Types Packs/Day Years Used Date Smoking Tobacco: Former Smokeless Tobacco: Former Alcohol Use Standard Drinks/Week Comments Yes 0 (1 standard drink = 0.6 oz pur e alcohol) Sex and Gender Information Value Date Recorded Sex Assigned at Not on file Gender Identity Not on file Sexual Orientation Not on file Obstetrics History Last Filed Vital Signs Vital Sign Reading Time Taken Comments Blood Pressure 120/82 04/11/2024 10:34 AM EDT Sitting L Arm Pulse 96 04/11/2024 10:34 AM EDT Temperature - - Respiratory Rate - - Oxygen Saturation - - Inhaled Oxygen Concentration - - Weight 81.7 kg (180 lb 3.2 oz) 04/11/2024 10:34 AM EDT Height 167.6 cm (5' 6 ) 04/11/2024 10:3 4 AM EDT Body Mass Index 29.08 04/11/2024 10:34 AM EDT Plan of Treatment Health Maintenance Due Date Last Done Comments DTaP,Tdap,and Td Vaccines (1 - Tdap) 02/11/1987 Hepatitis B Vaccines (1 of 3 - 19+ 3-dose series) 02/11/1987 Zoster Vaccines (1 of 2) 02/11/2018 Cholesterol Screening (Lipid Panel) 07/09/2022 Colorectal Cancer Screening: Colonoscopy 07/09/2022 Depression Screening 07/09/2022 HIV Screening 07/09/2022 Hepatitis C Screening 07/09/2022 Social Influencers of Health Screening 07/09/2022 Hypertension/CHF/CAD Annual BMP Blood Test 07/19/2022 COVID-19 Vaccine (2023-2 5 season) 2024 Influenza Vaccine (#1) 2024 HIB Vaccines Aged Out No longer eligi [...] on patient's age to complete this topic MMR Vaccines Aged Out No longer eligi ble based on patient's age to complete this topic Meningococcal ACWY Vaccine Aged Out N o longer eligible based on patient's age to complete this topic Pneumococcal Vaccine: Pediat rics (0 to 5 Years) and At-Risk Patients (6 to 64 Years) Aged Out No longer eligible b ased on patient's age to complete this topic RSV Immunization Patients Un chinyere 20 months Aged Out No longer eligible b ased on patient's age to complete this topic Varicella Vaccines Aged Out No longer eligible based on patient's age to complete this topic Care Teams Parish Worker Relationship Specialty Start Date End Date Rosaura Brady NP [address] [place] [phone] PCP - General 05/29/23
--- OUTSIDE RECORDS SUMMARY | 2024-08-27 13:53 | XMS_ITS | Encounter Summary ---
Author Organization [employer] Address [address] 7[address] [place] [address] Care Team Providers Care Rn Cardiovascular Name Role Phone Rosaura Brady Primary Care Provider [phone] Reason for Visit * Reason Onset Date Comments Medication Question 02/05/2024 Encounter Details Date Type Department Care Team ([facility] st Contact Info) Description 02/05/2024 Telephone [facility] MEDICINE [address] [place], [place] [phone] Rosaura Brady ANP [address] [place] [address] Medication Question Social History Tobacco Use Types [...] encounter Miscellaneous Notes * Telephone Encounter - Ray Samuels RN - 02/05/2024 2:19 PM EDT T/C to pt. Pharmacy for below message, [employer] states pt. Last time picked up Lisinopril 10 mg on 01/23/2024 and it was prescribe by another facility. T/C to pt. To inform that Lisinopril 10 mg was not prescribe from [facility], pt. States it was prescribe by insulation extruder operator. Pt. Advised to give call to insulation extruder operator office for refill. Pt. Verbally agreed and understood. * Telephone Encounter - Rafa De La Fuente - 02/05/2024 9:16 AM EDT Tc from calling in regards to lisinopril 20 MG tablet. Pt stated he has lost medication and is requesting for a new script to be sent to [facility]/pharmacy #[id number] - [place], [place] - [address] [place] [address]. If any questions please contact pt at [phone]. Gibraltarian Speaker documented in this encounter Plan of Treatment Not on file documented as of this encounter Visit Diagnoses Not on filedocumented in this encounter Additional Health Concerns Assessment Noted Time PHQ-9 Depression Total Score: 0 02/15/20 10:59 AM EDT documented as of this encounter Care Teams Rn Cardiovascular Relationship Specialty Start Date End Date Rosaura Brady ANP [address] [place] [address] PCP - General Family Medicine 03/22/23 documented as of this encounter
--- OUTSIDE RECORDS SUMMARY | 2024-08-27 13:53 | XMS_ITS | Encounter Summary ---
Author Organization [employer] Address [address] [place] [address] Care Team Providers Care Disbursement Clerk Name Role Phone Johnny Mandel Primary Care Provider Unavail Rosaura Ferguson Primary Care Provider [phone] Reason for Visit * Reason Onset Date Comments Medication Question 02/26/2023 Encounter Details Date Type Department Care Team ([facility] st Contact Info) Description 02/26/2023 Telephone [facility] MEDICINE [address] [place] [address] Johnny Mandel AGNP Medication Question Social History Tobacco Use Types Packs/Day Years Used Date Smoking Tobacco: Every Day Cigarettes Smokeless Tobacco: Never Alcohol Use Standard Drinks/Week Comments Not Currently 0 (1 standard drink = 0.6 oz pur e alcohol) Depression Answer Date Recorded Patient Health Questionnaire-9 Score 0 02/14/2023 Depression Answer Date Recorded Patient Health Questionnaire-2 [...] suspected to have Coronavirus/COVID-19? No / Unsure 02/14/2023 10:45 AM EDT documented as of this encounter Miscellaneous Notes * Telephone Encounter - Ray Samuels RN - 02/27/2023 4:42 PM EDT T/C to pt. For below message, pt. States he spoke with senior engineering team leader office and he is all set, he does not has any questions regarding medication. Pt. Advised to give call to [facility] if any questions or concerns. Pt. Verbally agreed and understood. * Telephone Encounter - Sana Galavizjia - 02/26/2023 9:33 AM EDT Tc from pt requesting to speak to a nurse in regards to script for lisinopril 20 mg & lisinopril 20 mg hydrochlorothiazide 12.5 mg , pt states has some further questions and concerns, lyric writer onlysees script for lisinopril 20 mg. Please contact at [phone] Georgian documented in this encounter Plan of Treatment Not on file documented as of this encounter Visit Diagnoses Not on filedocumented in this encounter Additional Health Concerns Assessment Noted Time PHQ-9 Depression Total Score: 0 02/15/20 10:59 AM EDT documented as of this encounter Care Teams Disbursement Clerk Relationship Specialty Start Date End Date Johnny Mandel AGNP PCP - General Family Medicine 09/27/22 03/21/23 Rosaura Brady ANP [address] [place] [address] PCP - General Family Medicine 03/22/23 documented as of this encounter
--- OUTSIDE RECORDS SUMMARY | 2024-08-27 13:53 | XMS_ITS | Encounter Summary ---
Author Organization [employer] Address [address] [facility] [place] [address] Care Team Providers Care Customer Care Assistant Name Role Phone Rosaura Brady Primary Care Provider [phone] Reason for Visit * Reason Comments Med Refill Encounter Details Date Type Department Care Team ([facility] st Contact Info) Description 02/27/2024 Refill [facility] MEDICINE [address] [place], [place] [phone] Rosaura Brady ANP [address] [place], [place] [phone] Chronic allergic rhinitis Social History Tobacco Use Types Packs/Day Years [...] as of this encounter Visit Diagnoses Diagnosis Chronic allergic rhinitis documented in this encounter Additional Health Concerns Assessment Noted Time PHQ-9 Depression Total Score: 0 02/15/20 10:59 AM EDT documented as of this encounter Care Teams Customer Care Assistant Relationship Specialty Start Date End Date Rosaura Brady ANP [address] [place] [address] PCP - General Family Medicine 03/22/23 documented as of this encounter
== END 2024-08-27 14:03 | disposition home or self-care (01) ==
PROVIDERS: PCP Nurse Practitioner Primary Care; Visit Provider Internal Medicine Gastroenterology
PROC: 0DJ08ZZ Inspection of Upper Intestinal Tract, Via Natural or Artificial Opening Endoscopic (ICD-10-PCS; CPT 43235; principal; 2024-08-27 12:00)
DX: K20.80 Other esophagitis without bleeding (principal); K29.60 Other gastritis without bleeding; K31.1 Adult hypertrophic pyloric stenosis; K21.9 Gastro-esophageal reflux disease without esophagitis; R63.4 Abnormal weight loss; Z68.29 Body mass index [BMI] 29.0-29.9, adult; K58.2 Mixed irritable bowel syndrome; R79.82 Elevated C-reactive protein (CRP); E11.9 Type 2 diabetes mellitus without complications; I10 Essential (primary) hypertension; J45.909 Unspecified asthma, uncomplicated; G47.33 Obstructive sleep apnea (adult) (pediatric); F17.210 Nicotine dependence, cigarettes, uncomplicated; Z90.49 Acquired absence of other specified parts of digestive tract
CPT/HCPCS: 43239; 82947; 88305; 88312; 88313; 88342; J2003; J2704

== ENCOUNTER → 2024-08-27 11:49 | Outpatient (BNV) | payer OTHER, SELFPAY | PROVIDERS: PCP Nurse Practitioner Primary Care; Visit Provider Internal Medicine Gastroenterology | DX: K20.90 Esophagitis, unspecified without bleeding (principal); K29.70 Gastritis, unspecified, without bleeding | CPT/HCPCS: 43239 ==

== ENCOUNTER 2024-12-26 09:09 | Outpatient (REF) | payer OTHER, SELFPAY ==
--- OUTSIDE RECORDS SUMMARY | 2024-12-26 09:26 | XMS_ITS | Encounter Summary ---
Author Organization [employer] Address [address] [facility] 7t [place] [address] Care Team Providers Care Assembly Line Robot Operator Name Role Phone Rosaura Brady Primary Care Provider [phone] Reason for Visit * Reason Onset Date Comments Medication Question 02/05/2024 Encounter Details Date Type Department Care Team ([facility] st Contact Info) Description 02/05/2024 Telephone [facility] MEDICINE [address] [place], [place] [phone] Rosaura Brady ANP [address] [place] [address] Medication Question Social History Tobacco Use Types [...] T/C to pt. Pharmacy for below message, [employer] states pt. Last time picked up Lisinopril 10 mg on 01/23/2024 and it was prescribe by another facility. T/C to pt. To inform that Lisinopril 10 mg was not prescribe from [facility], pt. States it was prescribe by blasting entryman. Pt. Advised to give call to blasting entryman office for refill. Pt. Verbally agreed and understood. * Telephone Encounter - Rafa De La Fuente - 02/05/2024 9:16 AM EDT Tc from calling in regards to lisinopril 20 MG tablet. Pt stated he has lost medication and is requesting for a new script to be sent to [facility]/pharmacy #[id number] - [place], [place] - [address] If any questions please contact pt at [phone]. Croatian Speaker documented in this encounter Plan of Treatment Upcoming Encounters Date Type Department Care Team (Late st Contact Info) Description 03/26/2025 10:30 AM EDT Office Visit [facility] MEDICINE [address] [place] [address] Rosaura Brady ANP [address] [place] [address] documented as of this encounter Visit Diagnoses Not on filedocumented in this encounter Additional Health Concerns Assessment Noted Time PHQ-9 Depression Total Score: 0 02/15/20 10:59 AM EDT documented as of this encounter Care Teams Assembly Line Robot Operator Relationship Specialty Start Date End Date Rosaura Brady ANP [address] [place] [address] PCP - General Family Medicine 03/22/23 documented as of this encounter
[2024-12-26 11:46] LABS: Alanine Aminotransferase 29 U/L (0-40); Albumin Level 4.4 g/dL (3.5-5.0); Alkaline Phosphatase 92 U/L (39-117); Anion Gap 9 (12-20); Aspartate Amino Transferase 37 U/L (5-37); Bilirubin Total 0.4 mg/dL (0.0-1.0); Blood Urea Nitrogen 11 mg/dL (9-16); Calcium 9.4 mg/dL (8.4-10.2); Carbon Dioxide 29 mmol/L (22-29); Chloride 106 mmol/L (96-108); Cholesterol 132 mg/dL (<200); Estimated Glomerular Filt Rate > 60; Glucose Random 146 mg/dL (60-115); HDL Cholesterol 38 mg/dL (>40); LDL Cholesterol Calculated 70 mg/dL (<100); Potassium 4.8 mmol/L (3.3-5.1); Sodium 139 mmol/L (135-145); Total Protein 7.1 g/dL (6.5-8.0); Triglycerides 121 mg/dL (<150)
[2024-12-26 12:30] LABS: Creatinine Urine 88.02 mg/dL; Microalbumin Urine < 5.0 mg/L
== END 2024-12-26 09:10 | disposition home or self-care (01) ==
LOC: HO.HHCL 09:09
PROVIDERS: Visit Provider Nurse Practitioner Primary Care
DX: E11.69 Type 2 diabetes mellitus with other specified complication (principal); E78.5 Hyperlipidemia, unspecified
CPT/HCPCS: 36415; 80053; 80061; 82043; 82570